=== PATIENT | female | born 1945 | race Caucasian/White ===

== ENCOUNTER 2017-11-16 12:29 | Inpatient (IN) | payer MEDICARE, OTHER ==
[~2017-11-16] VITALS: Ht 162.6 cm; Wt 60.3 kg
--- NOTE | 2017-11-16 12:35 | NUR ---
[id number] FROM HOME FOR N/V/D X 3 DAYS, +ORTHOSTATIC BP IN FIELD. IV INTACT ON LAC, 20 G. 200CC IV GIVEN ON ROUTE. BS-147. ALSO C/O BACK PAIN AND HEADACHE. A/OX 4. BREATHING EVEN AND UNLABORED. NO SOB. VITALS STABLE. SAFETY AND COMFORT MEASURES IN PLACE. AWAITING MD ORDERS.
--- NOTE | 2017-11-16 12:45 | NUR ---
RUG BACKING STENCILER AT BEDSIDE FOR BLOOD DRAW.
--- NOTE | 2017-11-16 12:50 | NUR ---
AT BEDSIDE FOR EVAL.
[2017-11-16] MEDS ORDERED: IV NS 0.9% 1,000 ML BAG IV ONE ×2 (13:00→13:30)
[2017-11-16 13:02] LABS: BASOPHILS # (AUTO) 0.1 /CMM (0.0-0.2); BASOPHILS % (AUTO) 0.7 % (0.0-2.0); EOSINOPHILS % (AUTO) 0.1 % (0.0-6.0); HEMATOCRIT 40 % (33-45); HEMOGLOBIN 13.9 g/dL (11.5-14.8); LYMPHOCYTES # (AUTO) 1.1 /CMM (0.8-4.8); LYMPHOCYTES % (AUTO) 12.6 % (20.0-44.0); MEAN CORPUSCULAR HEMOGLOBIN 30 PG (26.0-33.0); MEAN CORPUSCULAR HGB CONC 35 g/dl (31.0-36.0); MEAN CORPUSCULAR VOLUME 85 fL (82-100); MONOCYTES # (AUTO) 0.9 /CMM (0.1-1.30); MONOCYTES % (AUTO) 9.7 % (2.0-12.0); NEUTROPHILS % (AUTO) 76.9 % (43.0-81.0); PLATELET COUNT (AUTO) 96 /CMM (150-450); RDW COEFFICIENT OF VARIATION 13.2 (11.5-15.0); RED BLOOD CELL COUNT(AUTO) 4.73 MIL/uL (4.0-5.2); WHITE BLOOD COUNT (AUTO) 9.1 K/uL (4.3-11.0)
[2017-11-16 13:09] LABS: CALCIUM, SERUM 9.6 mg/dL (8.5-10.1); CARBON DIOXIDE 23 mmol/L (21-32); CHLORIDE 107 mmol/L (98-107); CREATININE 0.9 mg/dL (0.6-1.3); GLUCOSE 128 mg/dL (74-106); POTASSIUM 4.2 mmol/L (3.5-5.1); SODIUM SERUM 135 mmol/L (136-145); UREA NITROGEN, BLOOD 24 mg/dL (7-18)
[2017-11-16 13:19] LABS: ALANINE AMINOTRANSFERASE 8 U/L (12-78); ALKALINE PHOSPHATASE 68 U/L (46-116); ASPARTATE AMINOTRANSFERASE 17 U/L (15-37); BILIRUBIN,TOTAL 0.4 mg/dL (0.2-1.0); TOTAL PROTEIN, SERUM 6.3 g/dL (6.4-8.2)
[2017-11-16 13:21] LABS: TROPONIN I < 0.017 ng/mL (0.00-0.056)
[2017-11-16] MEDS ORDERED: ACETAMINOPHEN ES 500 MG TABLET ONE (13:29)
--- NOTE | 2017-11-16 13:30 | NUR ---
PER DR. GARCIA, GIVE 1 GM TYLENOL FOR HEADACHE.
--- NOTE | 2017-11-16 13:45 | NUR ---
URINE OBTAINED VIA STRAIGHT CATH AND SENT TO LAB PER MD ORDERS.
[2017-11-16] MEDS ORDERED: ATOR10TA PO (13:49)
[2017-11-16] MEDS ORDERED: ASPI-1169 PO (13:49)
[2017-11-16] MEDS ORDERED: LEVO50TA8 PO (13:49)
[2017-11-16] MEDS ORDERED: AMIT25TA52 PO (13:49)
[2017-11-16] MEDS ORDERED: FLUO40CA8 PO (13:49)
[2017-11-16] MEDS ORDERED: LOPERAMIDE HCL (2 MG CAP) 2 MG CAPSULE PO ONE ×2 (13:58→14:00)
[2017-11-16 15:00] LABS: APPEARANCE,URINE SL CLOUDY (CLEAR); BILIRUBIN,URINE 1+ (NEGATIVE); BLOOD, URINE 2+ Ery/uL (NEGATIVE); COLOR,URINE YELLOW (YELLOW); KETONES,URINE 1+ (NEGATIVE); LEUKOCYTE ESTERASE ,URINE 1+ (NEGATIVE); NITRITE, URINE POSITIVE (NEGATIVE); PROTEIN,URINE 1+ mg/dl (NEGATIVE); UGLUCOSE NEGATIVE (NEGATIVE)
[2017-11-16 15:30] LABS: BACTERIA,URINE 4+ /HPF (None Seen)
--- NOTE | 2017-11-16 16:23 | NUR ---
DR BORREGO AT BS FOR EVAL.
[2017-11-16] MEDS ORDERED: CEPHALEXIN MONOHYDRATE 500 MG CAPSULE PO ONE ×2 (16:28→16:30)
[2017-11-16] MEDS ORDERED: ONDANSETRON HCL/PF 4 MG/2 ML VIAL IVP PRN (17:00)
[2017-11-16] MEDS ORDERED: Z GUARD REMEDY 2 OZ OINT TP PRN (17:00)
[2017-11-16] MEDS ORDERED: ACETAMINOPHEN 325 MG TABLET PO PRN (17:00)
--- NOTE | 2017-11-16 17:26 | NUR ---
REPORT GIVEN TO MARZENA LUX FOR MOLLY UPON ADMISSION.
--- NOTE | 2017-11-16 17:45 | NUR ---
PATIENT TRANSPORTED TO [facility] VIA STRETCHER FOR ADMISSION. RN, MARZENA TO PROVIDE MOLLY.
--- NOTE | 2017-11-16 17:55 | NUR ---
RN MS NOTES RECEIVED PT FROM E.R. STAFF VIA ACACIA, PT IS AWAKE, ALERT AND ORIENTED, NO COMPLAINT OF PAIN, BREATHING PATTERN NORMAL, ASSISTED TO BED, MADE COMFORTABLE, ROOM SET UP ORIENTATION PROVIDED, VERBALIZED UNDERSTANDING, PLAN OF CARE DISCUSSED WITH PT, VERBALIZED UNDERSTANDING, KEPT COMFORTABLE, CALL LIGHT PLACED WITHIN REACH.
[2017-11-16 18:00] VITALS: BP 94/40
[2017-11-16] MEDS: IV NS 0.9% 1,000 ML IV PRN (18:19)
--- NOTE | 2017-11-16 18:40 | NUR ---
RN MS NOTES PT IN BED, RESTING, IV FLUIDS INFUSING, PT AWARE OF NPO STATUS, VERBALIZED UNDERSTANDING, KEPT WARM AND COMFORTABLE.
[2017-11-16 20:43] VITALS: BP 96/49
[2017-11-16] MEDS: ZOLPIDEM TARTRATE 5 MG TABLET PO PRN (20:49)
--- NOTE | 2017-11-16 21:03 | NUR ---
RN NOTES PATIENT REQUESTING FOR SLEEPING PILL. LATEST BP 96/49. PER THE PATIENT AND HER , THE USUAL BP AT HOME IS 90/60. EDUCATED REGARDING SIDE EFFECTS OF AMBIEN, INCLUDING LOWER BP. PATIENT VERBALIZES UNDERSTANDING, BUT STILL STRONGLY INSISTING ON RECEIVING AMBIEN 5MG. MEDICATION ADMINISTERED PER REQUEST. WILL MONITOR CLOSELY. PRIMARY NURSE MADE AWARE
[2017-11-16] MEDS: ATORVASTATIN 10 MG TABLET PO SCH (22:03)
[2017-11-17 04:00] VITALS: BP 105/56
[2017-11-17] MEDS: IV NS 0.9% 1,000 ML IV PRN ×2 (04:41→15:53)
--- NOTE | 2017-11-17 07:30 | NUR ---
MS RN OPENING RECEIVED PATIENT A/OX4. PATIENT DENIES SOB, DIFFICULTY BREATHING AND STATES MIGRAINE SINCE ADMISSION. NOTIFIED WE HAVE NORCO WE CAN GIVE PATIENT. ALL NEEDS IN REACH, BED LOWERED AND LOCKED, RAILS UPX3 FOR SAFETY BED ALARM ON LOWERED AND LOCKED. NOTIFIED PATIENT PER RN WE NEED ANOTHER STOOL SAMPLE THE PREVIOUS WAS NOT ENOUGH. PATIENT APPEARS STABLE AT THIS TIME. WILL ROUND Q2H OR LESS PER NEEDS.
[2017-11-17 08:00] VITALS: BP 82/48
[2017-11-17 08:15] VITALS: BP 96/56
[2017-11-17] MEDS: FLUOXETINE HCL 20 MG CAPSULE PO SCH (08:19)
[2017-11-17] MEDS: AMITRIPTYLINE HCL 25 MG TABLET PO SCH (08:19)
[2017-11-17] MEDS: ASPIRIN 81 MG TAB.CHEW PO SCH (08:20)
[2017-11-17] MEDS: LEVOTHYROXINE SODIUM 50 MCG TABLET PO SCH (08:20)
[2017-11-17] MEDS: HYDROCODONE/APAP 5/325MG 1 EACH TABLET PO PRN ×2 (08:20→21:30)
[2017-11-17 08:29] LABS: BASOPHILS % (AUTO) 0.3 % (0.0-2.0); EOSINOPHILS # (AUTO) 0.2 /CMM (0.0-0.7); EOSINOPHILS % (AUTO) 2.7 % (0.0-6.0); HEMATOCRIT 32 % (33-45); HEMOGLOBIN 11.1 g/dL (11.5-14.8); LYMPHOCYTES # (AUTO) 1.5 /CMM (0.8-4.8); LYMPHOCYTES % (AUTO) 20.7 % (20.0-44.0); MEAN CORPUSCULAR HEMOGLOBIN 30 PG (26.0-33.0); MEAN CORPUSCULAR HGB CONC 35 g/dl (31.0-36.0); MEAN CORPUSCULAR VOLUME 86 fL (82-100); MONOCYTES # (AUTO) 0.8 /CMM (0.1-1.30); MONOCYTES % (AUTO) 11.6 % (2.0-12.0); NEUTROPHILS # (AUTO) 4.6 /CMM (1.8-8.9); NEUTROPHILS % (AUTO) 64.7 % (43.0-81.0); PLATELET COUNT (AUTO) 171 /CMM (150-450); RDW COEFFICIENT OF VARIATION 13.8 (11.5-15.0); RED BLOOD CELL COUNT(AUTO) 3.73 MIL/uL (4.0-5.2); WHITE BLOOD COUNT (AUTO) 7.1 K/uL (4.3-11.0)
[2017-11-17 10:24] VITALS: BP 95/48
[2017-11-17 13:34] LABS: CALCIUM, SERUM 8.3 mg/dL (8.5-10.1); CARBON DIOXIDE 22 mmol/L (21-32); CHLORIDE 112 mmol/L (98-107); CREATININE 0.6 mg/dL (0.6-1.3); GLUCOSE 80 mg/dL (74-106); MAGNESIUM 1.5 mg/dL (1.8-2.4); PHOSPHORUS 2.4 mg/dL (2.5-4.9); POTASSIUM 3.6 mmol/L (3.5-5.1); SODIUM SERUM 142 mmol/L (136-145); UREA NITROGEN, BLOOD 11 mg/dL (7-18)
[2017-11-17 13:42] LABS: TRIGLYCERIDES 110 mg/dL (30-150)
[2017-11-17 13:43] LABS: CHOLESTEROL 124 mg/dL (<200); HDL CHOLESTEROL 42 mg/dL (40-60); LDL 63 mg/dL (0-99)
[2017-11-17] MEDS: Magnesium 1GM/D5W 100ML PREMIX 100 ML IV SCH ×2 (15:28→16:29)
[2017-11-17 16:00] VITALS: BP 93/40
--- NOTE | 2017-11-17 19:03 | NUR ---
MS RN CLOSING PATIENT STABLE ALL DUE MEDS GIVEN AND ALL NEEDS MET. NEEDS IN REACH. BED LOWERED AND LOCKED. IVF RUNNING ORDERED. PATIENT STABLE. CARE ENDORSED TO RN FOR MOLLY
[2017-11-17 20:00] VITALS: BP 114/38
[2017-11-17] MEDS: ZOLPIDEM TARTRATE 5 MG TABLET PO PRN (21:30)
[2017-11-17] MEDS: ATORVASTATIN 10 MG TABLET PO SCH (21:30)
[2017-11-18] MEDS: IV NS 0.9% 1,000 ML IV PRN ×2 (03:00→20:01)
[2017-11-18] MEDS: HYDROCODONE/APAP 5/325MG 1 EACH TABLET PO PRN (04:16)
[2017-11-18 07:26] LABS: BASOPHILS % (AUTO) 0.3 % (0.0-2.0); EOSINOPHILS # (AUTO) 0.5 /CMM (0.0-0.7); EOSINOPHILS % (AUTO) 7.1 % (0.0-6.0); HEMATOCRIT 30 % (33-45); HEMOGLOBIN 10.6 g/dL (11.5-14.8); LYMPHOCYTES # (AUTO) 1.4 /CMM (0.8-4.8); MEAN CORPUSCULAR HEMOGLOBIN 30 PG (26.0-33.0); MEAN CORPUSCULAR HGB CONC 35 g/dl (31.0-36.0); MEAN CORPUSCULAR VOLUME 86 fL (82-100); MONOCYTES # (AUTO) 0.7 /CMM (0.1-1.30); MONOCYTES % (AUTO) 10.2 % (2.0-12.0); NEUTROPHILS # (AUTO) 4.2 /CMM (1.8-8.9); NEUTROPHILS % (AUTO) 62.4 % (43.0-81.0); PLATELET COUNT (AUTO) 193 /CMM (150-450); RDW COEFFICIENT OF VARIATION 13.7 (11.5-15.0); RED BLOOD CELL COUNT(AUTO) 3.49 MIL/uL (4.0-5.2); WHITE BLOOD COUNT (AUTO) 6.8 K/uL (4.3-11.0)
[2017-11-18 07:39] LABS: CALCIUM, SERUM 8.2 mg/dL (8.5-10.1); CARBON DIOXIDE 23 mmol/L (21-32); CHLORIDE 110 mmol/L (98-107); CREATININE 0.5 mg/dL (0.6-1.3); GLUCOSE 87 mg/dL (74-106); MAGNESIUM 1.9 mg/dL (1.8-2.4); POTASSIUM 3.4 mmol/L (3.5-5.1); SODIUM SERUM 141 mmol/L (136-145); UREA NITROGEN, BLOOD 6 mg/dL (7-18)
--- NOTE | 2017-11-18 07:52 | NUR ---
RN INITIAL NOTES PATIENT RECEIVED IN BED RESTING, AOX4, NO SIGNS OF DISTRESS ON ROOM AIR 98% O2, NS 0.9% 100ML/HR, CURRENTLY PATIENT CLEAR LIQUIDS BED IN LOW AND LOCKED POSITION, CALL LIGHT WITHIN REACH RN WILL CONTINUE TO MONITOR.
[2017-11-18 08:00] VITALS: BP 113/50
[2017-11-18] MEDS: ASPIRIN 81 MG TAB.CHEW PO SCH (08:28)
[2017-11-18] MEDS: AMITRIPTYLINE HCL 25 MG TABLET PO SCH (08:28)
[2017-11-18] MEDS: LEVOTHYROXINE SODIUM 50 MCG TABLET PO SCH (08:28)
[2017-11-18] MEDS: FLUOXETINE HCL 20 MG CAPSULE PO SCH (08:28)
[2017-11-18] MEDS ORDERED: POTASSIUM CHLORIDE 20 MEQ TAB.PRT.SR PO SCH (12:30)
[2017-11-18 16:00] VITALS: BP 99/51
--- NOTE | 2017-11-18 18:47 | NUR ---
MS RN CLOSING PATIENT STABLE AT THIS TIME PLAN OF CARE DISCUSSED WITH PATIENT AND MEDS GIVEN AND ALL NEEDS MET. CALL LIGHT WITH IN REACH. BED LOWERED AND LOCKED. IVF RUNNING ORDERED. PATIENT STABLE. CARE ENDORSED TO PM RN FOR CONTINUATION OF CARE
[2017-11-18 20:00] VITALS: BP 119/58
[2017-11-18] MEDS: ZOLPIDEM TARTRATE 5 MG TABLET PO PRN (21:47)
[2017-11-18] MEDS: ATORVASTATIN 10 MG TABLET PO SCH (21:47)
[2017-11-19 04:00] VITALS: BP 101/58
[2017-11-19] MEDS: HYDROCODONE/APAP 5/325MG 1 EACH TABLET PO PRN ×2 (05:26→18:47)
--- NOTE | 2017-11-19 07:44 | NUR ---
RN INITIAL NOTES PATIENT RECEIVED IN BED RESTING, AOX4, NO SIGNS OF DISTRESS ON ROOM AIR PT CURRENTLY PATIENT CLEAR LIQUIDS PT BED IN LOW AND LOCKED POSITION, CALL LIGHT WITHIN REACH RN WILL CONTINUE TO MONITOR.
[2017-11-19 08:00] VITALS: BP 100/41
[2017-11-19 08:28] LABS: CALCIUM, SERUM 8.3 mg/dL (8.5-10.1); CARBON DIOXIDE 26 mmol/L (21-32); CHLORIDE 110 mmol/L (98-107); CREATININE 0.6 mg/dL (0.6-1.3); GLUCOSE 102 mg/dL (74-106); POTASSIUM 3.7 mmol/L (3.5-5.1); SODIUM SERUM 142 mmol/L (136-145); UREA NITROGEN, BLOOD 2 mg/dL (7-18)
[2017-11-19] MEDS: FLUOXETINE HCL 20 MG CAPSULE PO SCH (08:42)
[2017-11-19] MEDS: AMITRIPTYLINE HCL 25 MG TABLET PO SCH (08:42)
[2017-11-19] MEDS: ASPIRIN 81 MG TAB.CHEW PO SCH (08:43)
[2017-11-19] MEDS: LEVOTHYROXINE SODIUM 50 MCG TABLET PO SCH (08:43)
[2017-11-19] MEDS ORDERED: LEVO500T75 PO (09:29)
[2017-11-19] MEDS: LEVOFLOXACIN (500MG) 500 MG TABLET PO SCH (11:29)
--- NOTE | 2017-11-19 18:54 | NUR ---
MS RN CLOSING PATIENT STABLE AT THIS TIME PLAN OF CARE DISCUSSED WITH PATIENT AND MEDS GIVEN AND ALL NEEDS MET. CALL LIGHT WITH IN REACH. BED LOWERED AND LOCKED. IVF RUNNING ORDERED. PATIENT STABLE. CARE ENDORSED TO PM RN FOR CONTINUATION OF CARE PATIENT HAS PLANNED DISCHARGE IN AM AFTER SPEAKS WITH
[2017-11-19 20:00] VITALS: BP 94/37
[2017-11-19] MEDS: ATORVASTATIN 10 MG TABLET PO SCH (21:32)
--- NOTE | 2017-11-19 21:45 | NUR ---
MS-1/ENVIRONMENTAL SERVICES ASSISTANT REPORT TO THEE LUX FOR CONT OF CARE.
--- NOTE | 2017-11-19 21:45 | NUR ---
MS RN NOTES RECEIVED PTS AND REPORT FROM DEXTER NGUYEN FOR CONTINUITY OF CARE.
[2017-11-20 04:00] VITALS: BP 104/47
--- NOTE | 2017-11-20 05:25 | NUR ---
ms rn notes pts on bed a/ox3 v/s stable and afebrile ,all needs attended too , no significant change noted ,will endorse to rn day shift nurse for continuity of care.
--- NOTE | 2017-11-20 07:40 | NUR ---
MS RN OPENING NOTE PATIENT IS ALERT AND ORIENTED x4. NO PAIN AT THIS TIME. NO SOB OR DISTRESS NOTED. CALL LIGHT WITHIN REACH. SAFETY MEASURES IMPLEMENTED. ABLE TO COMMUNICATE NEEDS. ON REGULAR DIET TOLERATING WELL. RIGHT FOREARM IV INTACT AND PATENT NO REDNESS OR SWELLING NOTED. NO IV FLUIDS RUNNING AT THIS TIME. AMBULATORY WITH WALKER, STEADY GAIT. LABS THIS MORNING AWAITING RESULTS. POSSIBLE DISCHARGE TODAY, FAMILY WOULD LIKE TO SPEAK WITH MD PRIOR TO DISCHARGING FROM HOSPITAL. WILL CONTINUE TO MONITOR THROUGHOUT SHIFT
[2017-11-20] MEDS: ASPIRIN 81 MG TAB.CHEW PO SCH (08:11)
[2017-11-20] MEDS: AMITRIPTYLINE HCL 25 MG TABLET PO SCH (08:11)
[2017-11-20] MEDS: FLUOXETINE HCL 20 MG CAPSULE PO SCH (08:11)
[2017-11-20] MEDS: LEVOTHYROXINE SODIUM 50 MCG TABLET PO SCH (08:11)
[2017-11-20] MEDS: LEVOFLOXACIN (500MG) 500 MG TABLET PO SCH (08:34)
[2017-11-20 12:22] VITALS: BP 111/57
[2017-11-20] MEDS ORDERED: LEVO500T75 PO (12:47)
--- NOTE | 2017-11-20 14:17 | NUR ---
MS BOTTOM BUFFER NOTE PATIENT IS ALERT AND ORIENTED x4. NO PAIN AT THIS TIME. NO SOB OR DISTRESS NOTED. CALL LIGHT WITHIN REACH AT ALL TIMES. SAFETY MEASURES IMPLEMENTED. ABLE TO COMMUNICATE NEEDS. ALL DUE MEDICATIONS GIVEN ORDERED. ALL NURSING CARE NEEDS ATTENDED TO. IV REMOVED. SKIN INTACT. ALL BELONGINGS ACCOUNTED FOR UPON DISCHARGE AND WITH PATIENT. PRESCRIPTION GIVEN TO PATIENT, GAVE MEDICATION EDUCATION, TEACH BACK RECEIVED. ALL DISCHARGE INSTRUCTIONS GIVEN TO PATIENT AND AT BESIDE, TEACH BACK RECEIVED. LEFT VIA PRIVATE CAR WITH HOME.
== END 2017-11-20 14:00 | disposition home or self-care (01) | DRG 391 ==
LOC: ER 12:33 → EDBD 12:33 → MEDSG1 17:11
PROVIDERS: ADMIT Family Medicine; ATTEND Family Medicine
DX: A08.4 Viral intestinal infection, unspecified (principal); N17.0 Acute kidney failure with tubular necrosis; N39.0 Urinary tract infection, site not specified; E44.0 Moderate protein-calorie malnutrition; J98.11 Atelectasis; E86.0 Dehydration; E83.42 Hypomagnesemia; B96.89 Other specified bacterial agents as the cause of diseases classified elsewhere; E03.9 Hypothyroidism, unspecified; E78.5 Hyperlipidemia, unspecified; Z79.82 Long term (current) use of aspirin; Z79.899 Other long term (current) drug therapy; E86.9 Volume depletion, unspecified; R73.9 Hyperglycemia, unspecified; F32.9 Major depressive disorder, single episode, unspecified
CPT/HCPCS: 36415; 71045-TC; 80048-TC; 80061-TC; 80076-TC; 81000-TC; 83735-TC; 84100-TC; 84484-TC; 85025-TC; 87045-TC; 87081-TC; 87086-TC; 87186-TC; 89055; A4606; J2405; J3475; J7030; Z7610

== ENCOUNTER 2019-09-12 06:51 | Inpatient (IN) | payer BC, MEDICARE ==
[~2019-09-12] VITALS: Ht 165.1 cm; Wt 63.6 kg
[~2019-09-12 06:51] MED LIST: AMIT25TA52 PO; ASPI-1169 PO; ATOR10TA PO; FLUO40CA8 PO; LEVO500T75 PO; LEVO50TA8 PO
--- NOTE | 2019-09-12 07:14 | NUR ---
[id number] FROM [facility] C/O HEADACHE X3HR DIRECT CARE SUPERVISOR. REC'D TYLENOL 650MG WITH NO RELIEF, NO NEURO DEFICITS, TO ER BED 4, LINE STARTED, PHLEB AT BEDSIDE FOR LAB DRAW
[2019-09-12] MEDS ORDERED: PANTOPRAZOLE 40 MG VIAL ONE (07:20)
--- NOTE | 2019-09-12 07:28 | NUR ---
PATIENT RECEIVED RESTING INSIDE ROOM. SLEEPING, AROUSABLE THROUGH VERBAL AND TACTILE STIMULI. NO ACUTE DISTRESS. CONNECTED TO MONITOR. WILL CONTINUE TO MONITOR ACCORDINGLY
[2019-09-12] MEDS ORDERED: PANTOPRAZOLE 80 MG in IV NS 0.9% 500 ML IV ONE (07:30)
[2019-09-12] MEDS ORDERED: PANTOPRAZOLE 80 MG in IV NS 0.9% 500 ML IV PRN (07:30)
[2019-09-12] MEDS ORDERED: IV NS 0.9% 1,000 ML BAG IV ONE (07:30)
[2019-09-12 07:33] LABS: BASOPHILS % (AUTO) 0.5 % (0.0-2.0); EOSINOPHILS % (AUTO) 7.6 % (0.0-6.0); HEMATOCRIT 26 % (33-45); HEMOGLOBIN 8.7 g/dL (11.5-14.8); LYMPHOCYTES # (AUTO) 1.2 /CMM (0.8-4.8); LYMPHOCYTES % (AUTO) 14.8 % (20.0-44.0); MEAN CORPUSCULAR HGB CONC 34 g/dl (31.0-36.0); MEAN CORPUSCULAR VOLUME 91 fL (82-100); MONOCYTES # (AUTO) 0.9 /CMM (0.1-1.30); MONOCYTES % (AUTO) 10.9 % (2.0-12.0); NEUTROPHILS # (AUTO) 5.3 /CMM (1.8-8.9); NEUTROPHILS % (AUTO) 66.2 % (43.0-81.0); PLATELET COUNT (AUTO) 282 /CMM (150-450); RED BLOOD CELL COUNT(AUTO) 2.82 MIL/uL (4.0-5.2); WHITE BLOOD COUNT (AUTO) 7.9 K/uL (4.3-11.0)
[2019-09-12 07:39] LABS: CALCIUM, SERUM 8.5 mg/dL (8.5-10.1); CARBON DIOXIDE 33 mmol/L (21-32); CHLORIDE 102 mmol/L (98-107); CREATININE 0.7 mg/dL (0.6-1.3); GLUCOSE 88 mg/dL (74-106); POTASSIUM 3.2 mmol/L (3.5-5.1); SODIUM SERUM 135 mmol/L (136-145); UREA NITROGEN, BLOOD 14 mg/dL (7-18)
--- NOTE | 2019-09-12 07:41 | NUR ---
PATIENT LEFT UNIT VIA GURNEY WITH [employer] FOR CT
[2019-09-12 07:45] LABS: ALANINE AMINOTRANSFERASE 26 U/L (12-78); ALKALINE PHOSPHATASE 66 U/L (46-116); ASPARTATE AMINOTRANSFERASE 30 U/L (15-37); BILIRUBIN,DIRECT 0.1 mg/dL (0.0-0.2); BILIRUBIN,TOTAL 0.3 mg/dL (0.2-1.0)
--- NOTE | 2019-09-12 08:05 | NUR ---
PATIENT BACK FROM RADIOLOGY. CONNECTED TO MONITOR. STARTED PROTONIX DRIP PER ORDER. WILL CONTINUE TO MONITOR
--- NOTE | 2019-09-12 08:35 | NUR ---
CALLED MS BED.
[2019-09-12] MEDS ORDERED: ONDANSETRON HCL/PF 4 MG/2 ML VIAL IVP PRN (09:00)
[2019-09-12] MEDS ORDERED: Z GUARD REMEDY 2 OZ OINT TP PRN (09:00)
[2019-09-12] MEDS ORDERED: ZOLPIDEM TARTRATE 5 MG TABLET PO PRN (09:00)
--- NOTE | 2019-09-12 09:00 | NUR ---
GOT BED 325
--- NOTE | 2019-09-12 09:58 | NUR ---
REPORT GIVEN TO DIXIE LUX FOR MOLLY
--- NOTE | 2019-09-12 10:43 | NUR ---
PATIENT TRANSFERED TO [facility] VIA RNEY. NO ACUTE DISTRESS. RECEIVING NURSE AT BEDSIDE
--- NOTE | 2019-09-12 10:45 | NUR ---
TELE ADMIT FROM ER AFTER REPORT RECEIVED FROM GARY RN. PATIENT ORIENTED TO PRIMARY RN, ROOM, BED, AND UNIT POLICIES REGARDING PATIENT CARE AND VISITING HOURS. PATIENT NOW ON CONTINUOUS TELEMETRY MONITORING; READING ON ARRIVAL IS SR 98. PATIENT PLACED ON BEDSIDE 02, WEIGHED BY BEDSCALE, AND ENCOURAGED TO CALL IF NECESSARY. ALL QUESTIONS AND CONCERNS ADDRESSED. PATIENT VERBALIZED UNDERSTANDING.
[2019-09-12] MEDS: HYDROCODONE/APAP 5/325MG 1 EACH TABLET PO PRN ×3 (11:24→23:37)
[2019-09-12 15:27] LABS: IRON, SERUM 46 ug/dl (50-175); TOTAL IRON BINDING CAPACITY 178 ug/dl (250-450)
[2019-09-12] MEDS: IV NS 0.9% 1,000 ML IV PRN (15:30)
[2019-09-12 15:34] LABS: FERRITIN 271 ng/mL (8-388)
[2019-09-12 16:00] VITALS: BP 109/55
[2019-09-12 16:43] LABS: HEMOGLOBIN 10.4 g/dL (11.5-14.8)
--- NOTE | 2019-09-12 19:05 | NUR ---
LITIGATION COUNSEL NOTE RECEIVED PT IN STABLE CONDITION A/O X 2-3, NO SIGNS OF SOB OR DISTRESS, NO C/O PAIN OR N/V. IV IN R FA #[address] TELE MONITOR: SR 90. ALL CURRENT NEEDS ATTENDED TO. BED LOW, LOCKED, UPPER RAILS UP AND CALL LIGHT WITHIN REACH. WILL CONT. TO MONITOR.
--- NOTE | 2019-09-12 19:29 | NUR ---
CHANGE OF SHIFT REPORT PT RESTING COMFORTABLY IN BED. NO S/S OR C/O PAIN OR DISTRESS NOTED. SIDE RAILS UP X2, CALL LIGHT LEFT WITHIN REACH. NO SIGNIFICANT CHANGES SINCE ADMISSION. PT KEPT CLEAN, DRY, AND COMFORTABLE. REPORT GIVEN TO ABEL LUX
[2019-09-12 19:58] VITALS: BP 119/55
[2019-09-12] MEDS: PANTOPRAZOLE 40 MG VIAL IV SCH (21:23)
[2019-09-12 23:20] LABS: BILIRUBIN,URINE NEGATIVE (NEGATIVE); BLOOD, URINE NEGATIVE Ery/uL (NEGATIVE); COLOR,URINE YELLOW (YELLOW); KETONES,URINE NEGATIVE (NEGATIVE); LEUKOCYTE ESTERASE ,URINE NEGATIVE (NEGATIVE); NITRITE, URINE NEGATIVE (NEGATIVE); PH,URINE 6.5 (5.0-8.0); PROTEIN,URINE NEGATIVE (NEGATIVE); UGLUCOSE NEGATIVE (NEGATIVE); UROBILINOGEN,URINE 0.2 EU/dL (0.2)
[2019-09-12 23:30] LABS: APPEARANCE,URINE CLEAR (CLEAR)
[2019-09-12 23:41] VITALS: BP 103/57
[2019-09-13] MEDS: IV NS 0.9% 1,000 ML IV PRN ×2 (02:31→20:37)
[2019-09-13 03:59] VITALS: BP 92/59
--- NOTE | 2019-09-13 06:12 | NUR ---
MILL ATTENDANT NOTE PT IN STABLE CONDITION A/O X 2-3, NO SIGNS OF SOB OR DISTRESS, NO C/O PAIN OR N/V. IV IN R FA #[address] TELE MONITOR: SR 78. PT CURRENTLY NPO. ALL CURRENT NEEDS ATTENDED TO. BED LOW, LOCKED, UPPER RAILS UP AND CALL LIGHT WITHIN REACH. WILL CONT. TO MONITOR AND ENDORSE TO NEXT SHIFT FOR MOLLY.
[2019-09-13 06:18] LABS: BASOPHILS # (AUTO) 0.1 /CMM (0.0-0.2); BASOPHILS % (AUTO) 0.8 % (0.0-2.0); EOSINOPHILS % (AUTO) 9.5 % (0.0-6.0); HEMATOCRIT 27 % (33-45); HEMOGLOBIN 9.6 g/dL (11.5-14.8); LYMPHOCYTES # (AUTO) 1.3 /CMM (0.8-4.8); LYMPHOCYTES % (AUTO) 17.1 % (20.0-44.0); MEAN CORPUSCULAR HGB CONC 35 g/dl (31.0-36.0); MEAN CORPUSCULAR VOLUME 90 fL (82-100); MONOCYTES # (AUTO) 0.8 /CMM (0.1-1.30); MONOCYTES % (AUTO) 10.3 % (2.0-12.0); NEUTROPHILS # (AUTO) 4.6 /CMM (1.8-8.9); NEUTROPHILS % (AUTO) 62.3 % (43.0-81.0); PLATELET COUNT (AUTO) 253 /CMM (150-450); RED BLOOD CELL COUNT(AUTO) 3.04 MIL/uL (4.0-5.2); WHITE BLOOD COUNT (AUTO) 7.4 K/uL (4.3-11.0)
[2019-09-13 06:41] LABS: CALCIUM, SERUM 8.4 mg/dL (8.5-10.1); CREATININE 0.7 mg/dL (0.6-1.3); MAGNESIUM 1.6 mg/dL (1.8-2.4); POTASSIUM 3.6 mmol/L (3.5-5.1)
[2019-09-13 08:00] VITALS: BP 97/45
[2019-09-13] MEDS: HYDROCODONE/APAP 5/325MG 1 EACH TABLET PO PRN ×2 (08:22→14:53)
[2019-09-13] MEDS ORDERED: FLUT1BLS IH (08:25)
[2019-09-13] MEDS ORDERED: ASCO500T9 PO (08:25)
[2019-09-13] MEDS ORDERED: PRED2.5T PO (08:25)
[2019-09-13] MEDS ORDERED: BISA10SU11 RC (08:25)
[2019-09-13] MEDS ORDERED: ACET-868 PO (08:25)
[2019-09-13] MEDS ORDERED: TRAM50TA2 PO (08:25)
[2019-09-13] MEDS ORDERED: ZINC220C8 PO (08:25)
[2019-09-13] MEDS ORDERED: MULT-447 PO (08:25)
[2019-09-13] MEDS ORDERED: HYDR-4384 PO (08:25)
[2019-09-13] MEDS ORDERED: MIRT7.5T10 PO (08:25)
[2019-09-13] MEDS ORDERED: MAGN400O6 PO (08:25)
[2019-09-13] MEDS ORDERED: POLY17PO4 PO (08:25)
[2019-09-13] MEDS ORDERED: DIAZ5TAB4 PO (08:25)
[2019-09-13] MEDS ORDERED: NA P133E RC (08:25)
--- NOTE | 2019-09-13 08:30 | NUR ---
EGD CANCELLED AND PT. TO BE FED.
[2019-09-13] MEDS: PANTOPRAZOLE 40 MG VIAL IV SCH ×2 (08:34→20:54)
[2019-09-13] MEDS: Magnesium 1GM/D5W 100ML PREMIX 100 ML IV SCH ×2 (11:14→12:47)
--- NOTE | 2019-09-13 12:46 | NUR ---
WOUND CARE CONSULT WOUND CARE RECEIVED CONSULT FOR SACRAL/BUTTOCK REDNESS. WOUND CARE WILL DEFER CONSULT AND TREATMENT PLANS TO PLASTIC SURGICAL TEAM WHO ARE CURRENTLY FOLLOWING THIS PATIENT. PATIENT WITH STANISLAW AT 13, ALL PRESSURE ULCER PREVENTION MEASURES ARE NOTED TO BE IN PLACE AT THIS TIME. WILL SEE PRN.
[2019-09-13] MEDS: HYDROGEL DRESSING 90 GM TUBE TP SCH (13:36)
--- NOTE | 2019-09-13 14:22 | NUR ---
HARINI GILLILAND FROM PLASTIC SURGERY TEAM HERE AND SACRAL DEBRIDEMENT DONE.PT. ON LOW AIR LOSS BED
[2019-09-13 16:00] VITALS: BP 99/43
--- NOTE | 2019-09-13 16:00 | NUR ---
BP LOW-PT. IN TRENDELENBERG.IV INFUSING.MEDICATED X2 FOR PAIN TODAY. SPOUSE HERE.STATES PT. TAKING PAIN MEDS FOR YRS.SEEMS TO BE EASILY AFFECTED FROM PAIN MEDS.
--- NOTE | 2019-09-13 18:30 | NUR ---
JOSE VALENZUELA MANAGER OF CLINICAL HERE AND STATES EGD NOT TO BE DONE TOMORROW. CONT. TO GIVE PT. LIQ. DIET FOR NOW.
--- NOTE | 2019-09-13 19:20 | NUR ---
MS RN OPENING NOTES RECEIVED PATIENT FROM MORNING SHIFT, ALERT AND ORIENTED X 2-3. VERBALLY RESPONSIVE AND ABLE TO FOLLOW DIRECTIONS. BREATHING REGULAR AND UNLABORED ON OXYGEN AT 2L/MIN VIA NASAL CANNULA. RIGHT FOREARM G20 IV LINE INTACT AND PATENT FLUSHING WELL WITH NO BLEEDING OR S/S OF INFECTION/INFILTRATION NOTED. ON CLEAR LIQUIDS DIET TOLERATING WELL WITH NO NAUSEA/VOMITING OBSERVED. COMPLAINED OF 3/10 HEADACHE, TYLENOL 650MG GIVEN WITH NON PHARMACOLOGICAL INTERVENTIONS PROVIDED. BED LOW AND LOCKED ON SEMI FOWLERS POSITION. CALL LIGHT AND OTHER BELONGINGS IN REACH. WILL CONTINUE TO MONITOR.
[2019-09-13 20:00] VITALS: BP 109/50
[2019-09-13] MEDS: ACETAMINOPHEN 325 MG TABLET PO PRN (20:04)
--- NOTE | 2019-09-13 21:00 | NUR ---
MS RN NOTES SEEN PATIENT COUGHING AND NOTED WITH INCREASED IN RESPIRATION. REPORTED AND SEEN BY DARSHANA BARTH WITH ORDERS FOR STAT ABG AND GIVE ATIVAN 0.5MG FOR ANXIETY NOTED AND CARRIED OUT. WILL CONTINUE TO MONITOR.
[2019-09-13 21:15] LABS: ABG OXYGEN SATURATION 93.7 % (92.0-98.5); ABG PCO2 40.5 mmHg (35.0-45.0); ABG PH 7.446 (7.350-7.450); ABG PO2 69.3 mmHg (75.0-100.0); AaDO2 111.5 mmHg; COHb 0.8 % (0.5-1.5); MetHb 0.4 % (0.0-1.5); O2Hb 92.6 % (94.0-97.0); SITE, ABG Right Radial; VENT MODE, BG Nasal Cannula
[2019-09-13] MEDS: LORAZEPAM INJ 2 MG/ML VIAL IV PRN (21:23)
--- NOTE | 2019-09-13 21:30 | NUR ---
MS RN NOTES OBSERVED WITH S/S OF ANXIETY WITH INCREASED IN RESPIRATION AND INABILITY TO STAY STILL, ATIVAN 0.5MG GIVEN VIA IV PUSH, NON PHARMACOLOGICAL INTERVENTIONS RENDERED. WILL CONTINUE TO MONITOR.
[2019-09-13 22:00] VITALS: BP 109/50
--- NOTE | 2019-09-14 06:32 | NUR ---
MS RN CLOSING NOTES PATIENT IN BED ALERT AND ORIENTED X 2-3 WITH EPISODES OF CONFUSION AND FORGETFULNESS. VERBALLY RESPONSIVE AND ABLE TO FOLLOW DIRECTIONS. BREATHING REGULAR AND UNLABORED ON OXYGEN AT 2L/MIN VIA NASAL CANNULA. RIGHT FOREARM G20 IV LINE INTACT AND PATENT, INFUSING WELL. NO S/S OF DISTRESS OBSERVED OF THE TIME. NO COMPLAINTS OF PAIN/DISCOMFORT REPORTED. WOUND TREATMENT PROVIDED. BED LOW AND LOCKED ON SEMI FOWLERS POSITION. CALL LIGHT AND BELONGINGS WITHIN REACH. WILL ENDORSE TO MORNING SHIFT FOR MOLLY.
[2019-09-14 06:42] LABS: BASOPHILS % (AUTO) 0.6 % (0.0-2.0); EOSINOPHILS % (AUTO) 7.9 % (0.0-6.0); HEMATOCRIT 24 % (33-45); HEMOGLOBIN 8.4 g/dL (11.5-14.8); LYMPHOCYTES # (AUTO) 1.1 /CMM (0.8-4.8); LYMPHOCYTES % (AUTO) 17.9 % (20.0-44.0); MEAN CORPUSCULAR HGB CONC 34 g/dl (31.0-36.0); MEAN CORPUSCULAR VOLUME 91 fL (82-100); MONOCYTES # (AUTO) 0.6 /CMM (0.1-1.30); MONOCYTES % (AUTO) 10.3 % (2.0-12.0); NEUTROPHILS # (AUTO) 3.8 /CMM (1.8-8.9); NEUTROPHILS % (AUTO) 63.3 % (43.0-81.0); PLATELET COUNT (AUTO) 240 /CMM (150-450); RED BLOOD CELL COUNT(AUTO) 2.68 MIL/uL (4.0-5.2)
[2019-09-14 07:02] LABS: CALCIUM, SERUM 8.1 mg/dL (8.5-10.1); CREATININE 0.7 mg/dL (0.6-1.3); PHOSPHORUS 3.6 mg/dL (2.5-4.9); POTASSIUM 3.5 mmol/L (3.5-5.1)
--- NOTE | 2019-09-14 07:59 | NUR ---
MS RN OPENING NOTES Received Patient asleep and resting in bed. VS stable with no acute distress. Breathing even and unlabored on 2LPM via NC with SPO2 99%. No signs and symptoms of pain. 20g PIV on RFA clean, intact and patent with NS running at 75ml/hr. Wound dressing clean and intact. Safety precautions in place. Bed locked and set to lowest position with side rails x 2 up. All needs rendered at this time. Call light within reach. Will continue to monitor.
[2019-09-14 08:06] VITALS: BP 129/57
[2019-09-14] MEDS: ACETAMINOPHEN 325 MG TABLET PO PRN ×2 (08:45→15:35)
[2019-09-14] MEDS: PANTOPRAZOLE 40 MG VIAL IV SCH ×2 (08:48→20:56)
[2019-09-14] MEDS: HYDROGEL DRESSING 90 GM TUBE TP SCH (09:21)
[2019-09-14 16:00] VITALS: BP 95/50
[2019-09-14] MEDS: HYDROCODONE/APAP 5/325MG 1 EACH TABLET PO PRN (18:35)
[2019-09-14] MEDS: IV NS 0.9% 1,000 ML IV PRN (18:37)
--- NOTE | 2019-09-14 19:11 | NUR ---
MS RN CLOSING NOTES Patient asleep and resting in bed. VS stable with no acute distress. Breathing even and unlabored on 2LPM via NC with SPO2 99%. Administered Independence 5-325mg x 1 tab PO for headache 08/19 at 1835. 20g PIV on RFA clean, intact and patent with NS running at 75ml/hr. Wound dressing clean and intact. Safety precautions in place. Bed locked and set to lowest position with side rails x 2 up. All needs rendered at this time. Call light within reach. Will endorse plan of care to oncoming shift.
--- NOTE | 2019-09-14 19:40 | NUR ---
RN OPENING NOTES: RECEIVED REPORT FROM DAYSHIFT RN NANCY. FOUND Pt AWAKE, RESTING IN BED, WATCHING TV. Pt ON 2L 02 VIA NC. Pt IS A/OX2, VERBAL, ABLE TO MAKE NEEDS KNOWN, FORGETFUL. IV ACCESS ON RFA #20G; IVF NS @75ML/HR. Pt WILL BE NPO AT CT FOR SCHEDULED EDG TOMORROW. Pt IS AWARE. CONSENT SIGNED AND PLACED IN CHART. SAFETY MEASURES IN PLACE. BED LOW, LOCKED, HOB ELEVATED, SIDE RAILS UP, CALL LIGHT AND BEDSIDE TABLE WITHIN REACH. BED ALARM ON. WILL CONTINUE TO MONITOR Pt's CONDITION AND SAFETY THROUGHOUT THE NIGHT.
[2019-09-14 20:00] VITALS: BP 100/50
[2019-09-14 20:24] VITALS: BP 100/45
[2019-09-14] MEDS: LORAZEPAM INJ 2 MG/ML VIAL IV PRN (20:56)
--- NOTE | 2019-09-14 22:25 | NUR ---
RN NOTES INFORMED ONCALL HOSPITALIST DARSHANA HERNANDEZ THAT Pt WAS C/O SOB WITH LABORED BREATHING & COUGHING. ORDERED PRN BREATHING TREATMENT Q4H FOR SOB & DIFFICULTY BREATHING.
--- NOTE | 2019-09-14 22:30 | NUR ---
RN NOTES DARSHANA HERNANDEZ SAID OK FOR TURNING OFF IVF FOR NOW. ORDERED CXR.
[2019-09-14] MEDS: ALBUTEROL FS 2.5 MG/3 ML VIAL.NEB NEB PRN (23:53)
[2019-09-15] MEDS: LORAZEPAM INJ 2 MG/ML VIAL IV PRN (05:36)
--- NOTE | 2019-09-15 06:40 | NUR ---
RN CLOSING NOTES NO SIGNIFICANT CHANGES IN Pt's CONDITION. STOOL OB COLLECTED. Pt IS RESTING COMFORTABLY IN BED, WITH EVEN AND UNLABORED RESPIRATIONS. ALL NEEDS MET AND ATTENDED TO. Pt HAS BEEN NPO. EGD SCHEDULED FOR TODAY. SAFETY MEASURES IN PLACE. WILL ENDORSE TO DAYSHIFT RN FOR Pt's MOLLY.
[2019-09-15 06:55] LABS: BASOPHILS % (AUTO) 0.2 % (0.0-2.0); EOSINOPHILS % (AUTO) 4.2 % (0.0-6.0); HEMATOCRIT 27 % (33-45); HEMOGLOBIN 9.3 g/dL (11.5-14.8); LYMPHOCYTES # (AUTO) 0.9 /CMM (0.8-4.8); LYMPHOCYTES % (AUTO) 11.9 % (20.0-44.0); MEAN CORPUSCULAR HGB CONC 34 g/dl (31.0-36.0); MEAN CORPUSCULAR VOLUME 91 fL (82-100); MONOCYTES # (AUTO) 0.7 /CMM (0.1-1.30); MONOCYTES % (AUTO) 9.2 % (2.0-12.0); NEUTROPHILS # (AUTO) 5.3 /CMM (1.8-8.9); NEUTROPHILS % (AUTO) 74.5 % (43.0-81.0); PLATELET COUNT (AUTO) 275 /CMM (150-450); RED BLOOD CELL COUNT(AUTO) 2.99 MIL/uL (4.0-5.2); WHITE BLOOD COUNT (AUTO) 7.2 K/uL (4.3-11.0)
[2019-09-15 07:24] LABS: CALCIUM, SERUM 8.7 mg/dL (8.5-10.1); CREATININE 0.8 mg/dL (0.6-1.3); MAGNESIUM 1.7 mg/dL (1.8-2.4); PHOSPHORUS 2.7 mg/dL (2.5-4.9); POTASSIUM 3.4 mmol/L (3.5-5.1)
[2019-09-15 08:00] VITALS: BP 114/72
--- NOTE | 2019-09-15 08:00 | NUR ---
MS RN OPENING NOTES Received Patient resting in bed. A/O x 2 with episodes of forgetfulness and confusion. VS stable with no acute distress. Breathing even and unlabored on 3LPM via NC with SPO2 94%. No signs and symptoms of pain. 20g PIV on RFA clean, intact and patent with NS running at 75ml/hr. Wound dressing clean and intact. Safety precautions in place. Bed locked and set to lowest position with side rails x 2 up. All needs rendered at this time. Call light within reach. Will continue to monitor.
[2019-09-15 08:18] LABS: OCCULT BLOOD STOOL NEGATIVE (NEGATIVE)
[2019-09-15] MEDS: PANTOPRAZOLE 40 MG VIAL IV SCH ×2 (09:52→20:11)
[2019-09-15] MEDS: HYDROGEL DRESSING 90 GM TUBE TP SCH (09:53)
--- NOTE | 2019-09-15 10:07 | NUR ---
MS RN NOTES Patient taken to OR for EGD. Patient in stable condition. in room.
[2019-09-15] MEDS ORDERED: ETOMIDATE 2 MG/ML VIAL ONE (10:09)
[2019-09-15] MEDS ORDERED: ALBUTEROL FS 2.5 MG/3 ML VIAL.NEB ONE (12:10)
--- NOTE | 2019-09-15 12:20 | NUR ---
MS RN NOTES Patient returned from OR from EGD at this time. Patient in stable condition. VS stable with no acute distress. Breathing even with shortness of breath on 4LPM with SPO2 94% with no respiratory distress. Denies pain. Post orders noted and carried out. Will continue to monitor.
[2019-09-15] MEDS: Magnesium 1GM/D5W 100ML PREMIX 100 ML IV SCH ×2 (13:20→15:20)
[2019-09-15] MEDS: POTASSIUM CL. PREMIX PERIPHER. 50 ML IV SCH ×2 (13:20→15:20)
--- NOTE | 2019-09-15 14:02 | NUR ---
MS RN NOTES 20g PIV on RFA leaking. Removed PIV and replaced it with 20g PIV on LORENA x 1 attempt. Patient tolerated well. at bedside. Will continue to monitor.
[2019-09-15 16:00] VITALS: BP 101/52
--- NOTE | 2019-09-15 19:40 | NUR ---
MS RN CLOSING NOTES Patient resting in bed. A/O x 2 with episodes of forgetfulness and confusion. VS stable with no acute distress. Breathing even and unlabored on 3LPM via NC with SPO2 96%. Patient stated neck pain. Endorsed to oncoming shift. 20g PIV on RFA clean, intact and patent with NS running at 75ml/hr. Wound dressing clean and intact. Safety precautions in place. Bed locked and set to lowest position with side rails x 2 up. All needs rendered at this time. Call light within reach. Will endorse plan of care to oncoming shift.
--- NOTE | 2019-09-15 19:45 | NUR ---
RN OPENING NOTES: RECEIVED REPORT FROM DAYSHIFT RN NANCY. FOUND Pt AWAKE, RESTING IN BED. Pt ON 2L 02 VIA NC. Pt IS A/OX2, VERBAL, ABLE TO MAKE NEEDS KNOWN, FORGETFUL. IV ACCESS ON RFA #20G. SAFETY MEASURES IN PLACE. BED LOW, LOCKED, HOB ELEVATED, SIDE RAILS UP, CALL LIGHT AND BEDSIDE TABLE WITHIN REACH. BED ALARM ON. WILL CONTINUE TO MONITOR Pt's CONDITION AND SAFETY THROUGHOUT THE NIGHT.
[2019-09-15 20:00] VITALS: BP 106/53
[2019-09-15] MEDS: ACETAMINOPHEN 325 MG TABLET PO PRN (20:11)
[2019-09-15] MEDS: ALBUTEROL FS 2.5 MG/3 ML VIAL.NEB NEB PRN (20:35)
[2019-09-16 06:25] LABS: BASOPHILS % (AUTO) 0.4 % (0.0-2.0); EOSINOPHILS % (AUTO) 6.2 % (0.0-6.0); HEMATOCRIT 24 % (33-45); HEMOGLOBIN 7.9 g/dL (11.5-14.8); LYMPHOCYTES # (AUTO) 0.9 /CMM (0.8-4.8); LYMPHOCYTES % (AUTO) 14.6 % (20.0-44.0); MEAN CORPUSCULAR HGB CONC 34 g/dl (31.0-36.0); MEAN CORPUSCULAR VOLUME 91 fL (82-100); MONOCYTES # (AUTO) 0.6 /CMM (0.1-1.30); MONOCYTES % (AUTO) 9.8 % (2.0-12.0); NEUTROPHILS # (AUTO) 4.2 /CMM (1.8-8.9); PLATELET COUNT (AUTO) 229 /CMM (150-450); WHITE BLOOD COUNT (AUTO) 6.2 K/uL (4.3-11.0)
--- NOTE | 2019-09-16 06:28 | NUR ---
RN CLOSING NOTES NO SIGNIFICANT CHANGES IN Pt's CONDITION. Pt REMAINS STABLE AT THIS TIME. NO S/S OF ACUTE DISTRESS OR SEVERE SOB NOTED DURING THE NIGHT. Pt IS RESTING COMFORTABLY IN BED, WITH EVEN AND UNLABORED RESPIRATIONS. ALL NEEDS MET AND ATTENDED TO. SAFETY MEASURES IN PLACE. WILL ENDORSE TO DAYSHIFT RN FOR Pt's MOLLY.
[2019-09-16 06:42] LABS: CALCIUM, SERUM 7.9 mg/dL (8.5-10.1); CREATININE 0.6 mg/dL (0.6-1.3); PHOSPHORUS 3.1 mg/dL (2.5-4.9); POTASSIUM 3.8 mmol/L (3.5-5.1)
--- NOTE | 2019-09-16 07:44 | NUR ---
MS RN NOTES PATIENT IN BED, ALERT ORIENTED X 2. BREATHING IS EVEN AND UNLABORED. SHOWS NO SIGNS OF SOB, NO ACUTE DISTRESS. IV ON RAC #20G CLEAN, DRY, AND INTACT. RUNNING NS AT 75ML/H, SHOWS NO REDNESS, NO INFILTRATION. ALL PATIENTS NEEDS ARE MET. SAFETY MEASURE ARE IN PLACE. BED KEPT IN LOWEST POSITION, LOCKED, AND CALL LIGHT KEPT WITHIN REACH. WILL CONTINUE TO MONITOR.
[2019-09-16 08:00] VITALS: BP 102/49
[2019-09-16] MEDS: HYDROGEL DRESSING 90 GM TUBE TP SCH (08:15)
[2019-09-16] MEDS: PANTOPRAZOLE 40 MG VIAL IV SCH ×2 (08:15→21:57)
[2019-09-16] MEDS: HYDROCODONE/APAP 5/325MG 1 EACH TABLET PO PRN ×3 (08:57→21:57)
[2019-09-16] MEDS: ACETAMINOPHEN 325 MG TABLET PO PRN ×2 (12:23→19:12)
[2019-09-16 16:00] VITALS: BP 103/57
[2019-09-16] MEDS: IV NS 0.9% 1,000 ML IV PRN (16:56)
[2019-09-16] MEDS: ALBUTEROL FS 2.5 MG/3 ML VIAL.NEB NEB PRN (17:24)
--- NOTE | 2019-09-16 18:49 | NUR ---
MS RN NOTES PATIENT IN BED, ALERT ORIENTED X 2. BREATHING IS EVEN AND UNLABORED. SHOWS NO SOB, NO ACUTE DISTRESS. IV ON RAC #20G CLEAN, DRY AND INTACT. NO REDNESS, NO INFILTRATION. RUNNING NS AT 75ML/HR. ALL PATIENT NEEDS ARE MET. BED KEPT IN LOWEST POSITION AND LOCKED. CALL LIGHT KEPT WITH IN REACH. WILL CONTINUE TO MONITOR.
--- NOTE | 2019-09-16 19:15 | NUR ---
ms florencio initial notes received report from am nurse Garrett while doing our rounds and saw pt in bed awake and alert on semi fowlers position with side rails x2 up. breathing even and nonlabored . skin warm and dry to touch. complaining of mild pain and dayshift just gave some tylenol. kept her warm and comfortable at all times. will continue monitoring.
[2019-09-16 20:00] VITALS: BP 125/67
--- NOTE | 2019-09-16 20:07 | NUR ---
MS RN RECEIVE PT IN BED A/O X2, STABLE AND NOT IN DISTRESS, RESPIRATIONS EVEN AND UNLABORED. WILL CONT TO MTR
[2019-09-16 21:52] VITALS: BP 125/67
[2019-09-17] MEDS: LORAZEPAM INJ 2 MG/ML VIAL IV PRN ×2 (01:42→21:02)
--- NOTE | 2019-09-17 06:21 | NUR ---
MS RN ASLEEP AND EASILY AWAKEN, SLEPT WELL, OFFLOAD HEELS AND ELBOWS AT ALL TIMES. NO S/S OF DISTRESS, ASSISTED REPOSITION Q2HR, NURSING CARE RENDERED, KEPT CLEAN AND DRY AND COMFORTABLE. NEEDS ATTENDED AND ANTICIPATED. SAFETY MEASURES AT ALL TIMES. ENDORSE TO THE NEXT SHIF
[2019-09-17 06:22] LABS: BASOPHILS % (AUTO) 0.3 % (0.0-2.0); EOSINOPHILS % (AUTO) 7.6 % (0.0-6.0); HEMATOCRIT 23 % (33-45); HEMOGLOBIN 7.7 g/dL (11.5-14.8); LYMPHOCYTES # (AUTO) 0.8 /CMM (0.8-4.8); LYMPHOCYTES % (AUTO) 12.7 % (20.0-44.0); MEAN CORPUSCULAR HGB CONC 34 g/dl (31.0-36.0); MEAN CORPUSCULAR VOLUME 91 fL (82-100); MONOCYTES # (AUTO) 0.5 /CMM (0.1-1.30); MONOCYTES % (AUTO) 7.8 % (2.0-12.0); NEUTROPHILS # (AUTO) 4.8 /CMM (1.8-8.9); NEUTROPHILS % (AUTO) 71.6 % (43.0-81.0); PLATELET COUNT (AUTO) 228 /CMM (150-450); RED BLOOD CELL COUNT(AUTO) 2.49 MIL/uL (4.0-5.2); WHITE BLOOD COUNT (AUTO) 6.7 K/uL (4.3-11.0)
[2019-09-17 06:46] LABS: CALCIUM, SERUM 7.9 mg/dL (8.5-10.1); CREATININE 0.6 mg/dL (0.6-1.3); MAGNESIUM 1.7 mg/dL (1.8-2.4); PHOSPHORUS 2.8 mg/dL (2.5-4.9); POTASSIUM 3.6 mmol/L (3.5-5.1)
--- NOTE | 2019-09-17 07:36 | NUR ---
MS RN OPENING NOTES RECEIVED PATIENT IN BED RESTING COMFORTABLY IN MODERATE HIGH BACK REST. A/O X 2. NO SIGNS OF DISTRESS NOTED AT THIS TIME. IV FLUIDS ON RAC #20 WITH NS RUNNING @75ML/HR. PATENT AND INTACT. SAFETY MEASURES IN PLACE, BED IN LOW LOCKED POSITION WITH SIDE RAILS UPX2. CALL LIGHT WITHIN REACH. WILL CONTINUE TO MONITOR.
[2019-09-17 08:00] VITALS: BP 97/53
[2019-09-17] MEDS: PANTOPRAZOLE 40 MG VIAL IV SCH ×2 (08:13→21:02)
[2019-09-17] MEDS: HYDROGEL DRESSING 90 GM TUBE TP SCH (08:15)
[2019-09-17] MEDS: Magnesium 1GM/D5W 100ML PREMIX 100 ML IV SCH ×2 (10:39→11:49)
[2019-09-17] MEDS: ACETAMINOPHEN 325 MG TABLET PO PRN ×2 (11:24→18:30)
[2019-09-17] MEDS: ALBUTEROL FS 2.5 MG/3 ML VIAL.NEB NEB PRN (11:28)
--- NOTE | 2019-09-17 11:30 | NUR ---
RN NOTES SEEN AND EXAMINED BY JOSE DHALIWAL NP. NEW ORDERS OF OB STOOL. WILL CONTINUE TO MONITOR.
[2019-09-17] MEDS: METOCLOPRAMIDE HCL 10 MG/10 ML UDC GT SCH ×2 (13:29→21:02)
[2019-09-17] MEDS: SOD FERRIC GLUC 125 MG in IV NS 0.9% 100 ML IV SCH (14:09)
[2019-09-17] MEDS: IV NS 0.9% 1,000 ML IV PRN (14:10)
[2019-09-17] MEDS: EPOETIN ALFA (20,000 UNIT) 20,000 UNIT/ML VIAL SQ SCH (14:11)
[2019-09-17 16:00] VITALS: BP 97/48
--- NOTE | 2019-09-17 18:42 | NUR ---
MS RN CLOSING NOTES PATIENT IN BED RESTING COMFORTABLY IN MODERATE HIGH BACK REST. A/O X 2. NO SIGNS OF DISTRESS NOTED THROUGHOUT THE SHIFT. IV FLUIDS ON R HAND #22 WITH NS RUNNING @75ML/HR. PATENT AND INTACT. SAFETY MEASURES IN PLACE, BED IN LOW LOCKED POSITION WITH SIDE RAILS UPX2. CALL LIGHT WITHIN REACH. WILL ENDORSE TO IVF EMBRYOLOGIST NURSE FOR MOLLY.
[2019-09-17] MEDS: HYDROCODONE/APAP 5/325MG 1 EACH TABLET PO PRN (19:47)
[2019-09-17 20:00] VITALS: BP 114/54
--- NOTE | 2019-09-17 20:00 | NUR ---
MS RN NOTES RECEIVED PATIENT AWAKE IN BED WITH NO DISTRESS NOTED. CALL LIGHT WITHIN REACH. WITH C/O 9/10 ACHING GENERALIZED BODY PAIN. PRN NORCO GIVEN, WILL CONTINUE TO MONITOR FOR EFFECTIVENESS. PERIPHERAL LINE INTACT AND PATENT. ENCOURAGED USE OF CALL LIGHT FOR ASSISTANCE AND VERBALIZED/DEMONSTRATED GOOD UNDERSTANDING. BED ALARM ON AND FUNCTIONING PROPERLY. ROOM FREE OF CLUTTER AND BELONGINGS KEPT NEAR BEDSIDE. BED IN LOW LOCK SETTING. WILL CONTINUE TO MONITOR.
[2019-09-18] MEDS: IV NS 0.9% 1,000 ML IV PRN (03:07)
[2019-09-18] MEDS: METOCLOPRAMIDE HCL 10 MG/10 ML UDC GT SCH ×3 (05:30→21:02)
--- NOTE | 2019-09-18 06:36 | NUR ---
MS RN NOTES PATIENT ASLEEP IN BED WITH NO DISTRESS NOTED. CALL LIGHT WITHIN REACH. ALL DUE MEDS GIVEN ORDERED WITH NO ASE NOTED. PERIPHERAL LINE REMAINS INTACT AND PATENT. NO FURTHER C/O PAIN OR DISCOMFORT. BED IN LOW LOCK SETTING. ROOM FREE OF CLUTTER AND BELONGINGS KEPT NEAR BEDSIDE. WILL ENDORSE TO ONCOMING SHIFT.
[2019-09-18 06:54] LABS: BASOPHILS % (AUTO) 0.5 % (0.0-2.0); EOSINOPHILS % (AUTO) 8.1 % (0.0-6.0); HEMATOCRIT 23 % (33-45); HEMOGLOBIN 7.6 g/dL (11.5-14.8); LYMPHOCYTES # (AUTO) 1.1 /CMM (0.8-4.8); MEAN CORPUSCULAR HGB CONC 33 g/dl (31.0-36.0); MEAN CORPUSCULAR VOLUME 91 fL (82-100); MONOCYTES # (AUTO) 0.5 /CMM (0.1-1.30); MONOCYTES % (AUTO) 10.5 % (2.0-12.0); NEUTROPHILS # (AUTO) 3.1 /CMM (1.8-8.9); NEUTROPHILS % (AUTO) 59.9 % (43.0-81.0); PLATELET COUNT (AUTO) 246 /CMM (150-450); WHITE BLOOD COUNT (AUTO) 5.2 K/uL (4.3-11.0)
[2019-09-18 07:08] LABS: CALCIUM, SERUM 7.9 mg/dL (8.5-10.1); CREATININE 0.6 mg/dL (0.6-1.3); POTASSIUM 3.8 mmol/L (3.5-5.1)
[2019-09-18] MEDS: MAGNESIUM HYDROXIDE 30 ML UDC PO PRN (07:30)
--- NOTE | 2019-09-18 07:36 | NUR ---
MS RN OPENING NOTES RECEIVED PATIENT IN BED RESTING COMFORTABLY IN MODERATE HIGH BACK REST. A/O X 2. NOTED WITH IV FLUIDS OF NS RUNNING @75ML/HR. PATENT AND INTACT. NO ACUTE SIGNS OF DISTRESS NOTED AT THIS TIME. SAFETY MEASURES IN PLACE, BED IN LOW LOCKED POSITION WITH SIDE RAILS UP X2. CALL LIGHT WITHIN EASY REACH. WILL CONTINUE TO MONITOR.
[2019-09-18] MEDS: ALBUTEROL FS 2.5 MG/3 ML VIAL.NEB NEB PRN ×2 (07:45→15:08)
[2019-09-18 08:00] VITALS: BP 112/60
[2019-09-18] MEDS: PANTOPRAZOLE 40 MG VIAL IV SCH ×2 (08:23→21:02)
[2019-09-18] MEDS: HYDROGEL DRESSING 90 GM TUBE TP SCH (08:27)
[2019-09-18] MEDS: HYDROCODONE/APAP 5/325MG 1 EACH TABLET PO PRN ×2 (09:03→20:22)
[2019-09-18 09:51] LABS: PHOSPHORUS 3.2 mg/dL (2.5-4.9)
[2019-09-18] MEDS: LORAZEPAM INJ 2 MG/ML VIAL IV PRN (12:12)
[2019-09-18] MEDS: SOD FERRIC GLUC 125 MG in IV NS 0.9% 100 ML IV SCH (13:37)
--- NOTE | 2019-09-18 14:36 | NUR ---
RN NOTES SEEN AND EXAMINED BY JOSE DHALIWAL NP. NEW ORDER OF CHEST XR. ORDER MADE AND CARRIED OUT.
[2019-09-18 16:00] VITALS: BP 113/60
[2019-09-18] MEDS: ACETAMINOPHEN 325 MG TABLET PO PRN (16:23)
--- NOTE | 2019-09-18 18:48 | NUR ---
MS RN CLOSING NOTES PATIENT IN BED RESTING COMFORTABLY IN MODERATE HIGH BACK REST. A/O X 2. IV ACCESS ON RIGHT HAND #22, SL. PATENT AND INTACT. ALL NURSING NEEDS PROVIDED. SAFETY MEASURES IN PLACE, BED IN LOW LOCKED POSITION WITH SIDE RAILS UP X2. CALL LIGHT WITHIN EASY REACH. WILL ENDORSE TO PARALEGAL ASSISTANT NURSE FOR MOLLY.
--- NOTE | 2019-09-18 19:10 | NUR ---
MS RN OPENING NOTES RECEIVED PATIENT IN BED RESTING COMFORTABLY IN MODERATE HIGH BACK REST. A/O X 2. BREATHING EVEN AND UNLABORED. NO ACUTE SIGNS OF DISTRESS NOTED AT THIS TIME. SAFETY MEASURES IN PLACE, BED IN LOW LOCKED POSITION WITH SIDE RAILS UP X2. CALL LIGHT WITHIN EASY REACH. BED IN LOWEST, LOCKED POSITION. WILL CONTINUE TO MONITOR ACCORDINGLY.
[2019-09-18 20:00] VITALS: BP 127/51
[2019-09-19] MEDS: MAGNESIUM HYDROXIDE 30 ML UDC PO PRN (05:16)
[2019-09-19] MEDS: METOCLOPRAMIDE HCL 10 MG/10 ML UDC GT SCH ×3 (05:16→21:32)
[2019-09-19] MEDS: ALBUTEROL FS 2.5 MG/3 ML VIAL.NEB NEB PRN (05:20)
[2019-09-19 06:56] LABS: BASOPHILS % (AUTO) 0.4 % (0.0-2.0); HEMATOCRIT 26 % (33-45); HEMOGLOBIN 8.7 g/dL (11.5-14.8); LYMPHOCYTES # (AUTO) 1.6 /CMM (0.8-4.8); LYMPHOCYTES % (AUTO) 21.5 % (20.0-44.0); MEAN CORPUSCULAR HGB CONC 33 g/dl (31.0-36.0); MEAN CORPUSCULAR VOLUME 92 fL (82-100); MONOCYTES # (AUTO) 0.6 /CMM (0.1-1.30); MONOCYTES % (AUTO) 7.8 % (2.0-12.0); NEUTROPHILS # (AUTO) 4.8 /CMM (1.8-8.9); NEUTROPHILS % (AUTO) 64.3 % (43.0-81.0); PLATELET COUNT (AUTO) 296 /CMM (150-450); RED BLOOD CELL COUNT(AUTO) 2.85 MIL/uL (4.0-5.2); WHITE BLOOD COUNT (AUTO) 7.4 K/uL (4.3-11.0)
--- NOTE | 2019-09-19 07:04 | NUR ---
MS RN CLOSING NOTES PATIENT ASLEEP IN BED WITH NO DISTRESS NOTED. CALL LIGHT WITHIN REACH. ALL DUE MEDS GIVEN ORDERED. PERIPHERAL LINE REMAINS INTACT AND PATENT. NO FURTHER C/O PAIN OR DISCOMFORT. SAFETY MEASURES IN PLACE. BED IN LOW LOCK SETTING. ROOM FREE OF CLUTTER AND BELONGINGS KEPT NEAR BEDSIDE. WILL ENDORSE TO ONCOMING SHIFT.
[2019-09-19 07:12] LABS: MAGNESIUM 1.8 mg/dL (1.8-2.4); PHOSPHORUS 2.9 mg/dL (2.5-4.9)
[2019-09-19 08:00] VITALS: BP 112/45
[2019-09-19] MEDS: PANTOPRAZOLE 40 MG VIAL IV SCH ×2 (08:39→20:19)
[2019-09-19] MEDS: HYDROGEL DRESSING 90 GM TUBE TP SCH (08:45)
[2019-09-19] MEDS: ACETAMINOPHEN 325 MG TABLET PO PRN ×2 (08:45→18:22)
[2019-09-19] MEDS: LORAZEPAM INJ 2 MG/ML VIAL IV PRN (12:33)
--- NOTE | 2019-09-19 13:24 | NUR ---
RN NOTES SEEN AND EXAMINED BY JOSE DHALIWAL NP WITH NEW ORDERS OF MIRALAX 1 PACK DAILY AND INCENTIVE SPIROMETER. ORDERS MADE AND CARRIED OUT. Addendum: 09/19/19 at 1330 by ZACH SILVA RN incentive spirometer provided to the patient.
[2019-09-19] MEDS: SOD FERRIC GLUC 125 MG in IV NS 0.9% 100 ML IV SCH (13:36)
[2019-09-19 16:00] VITALS: BP 101/42
[2019-09-19] MEDS: PROSOURCE / PROSTAT (PYXIS) 30 ML UDC GT SCH (17:21)
--- NOTE | 2019-09-19 18:30 | NUR ---
MS RN CLOSING NOTES PATIENT IN BED RESTING COMFORTABLY IN MODERATE HIGH BACK REST. A/O X 2. IV ACCESS ON RIGHT HAND #22, SL. PATENT AND INTACT. ALL NURSING NEEDS PROVIDED. SAFETY MEASURES IN PLACE, BED IN LOW LOCKED POSITION WITH SIDE RAILS UP X2. CALL LIGHT WITHIN EASY REACH. WILL ENDORSE TO SOCIAL WORK ADMINISTRATOR NURSE FOR MOLLY.
--- NOTE | 2019-09-19 19:15 | NUR ---
MS RN OPENING NOTES RECEIVED PATIENT FROM MORNING SHIFT, ALERT AND ORIENTED X 2 FORGETFUL WITH EPISODES OF CONFUSION. VERBALLY RESPONSIVE AND ABLE TO FOLLOW DIRECTIONS. BREATHING REGULAR AND UNLABORED ON OXYGEN AT 2L/MIN VIA NASAL CANNULA. RIGHT HAND G22 IV LINE INTACT AND PATENT FLUSHING WELL WITH NO BLEEDING OR S/S OF INFECTION/INFILTRATION NOTED. NO COMPLAINTS OF PAIN/DISCOMFORT REPORTED OF THE TIME. BED LOW AND LOCKED ON SEMI FOWLERS POSITION. CALL LIGHT AND IMPORTANT BELONGINGS IN REACH. WILL CONTINUE TO MONITOR.
[2019-09-19 20:00] VITALS: BP 115/56
[2019-09-19] MEDS: HYDROCODONE/APAP 5/325MG 1 EACH TABLET PO PRN (20:19)
--- NOTE | 2019-09-19 20:30 | NUR ---
MS RN NOTES COMPLAINED OF 6/10 LOWER HEAD PAIN, NORCO 5/325 GIVEN BY MOUTH. VITAL SIGN WNL. NON PHARMACOLOGICAL INTERVENTIONS DONE. WILL CONTINUE TO MONITOR.
[2019-09-19 22:00] VITALS: BP 115/56
--- NOTE | 2019-09-19 22:00 | NUR ---
MS RN NOTES ASSISTED TRIM MASTER OPERATOR ON CLEANING AND CHANGING THE PATIENT. BODY ASSESSMENT DONE, STILL NOTED WITH SACRAL OPEN WOUNDS. PHOTO TAKEN ATTACHED TO THE CHART. ON-GOING TREATMENT PROVIDED. REPOSITIONED PATIENT ON HER RIGHT SIDE. WILL CONTINUE TO MONITOR.
[2019-09-20] MEDS: METOCLOPRAMIDE HCL 10 MG/10 ML UDC GT SCH ×3 (05:22→20:36)
[2019-09-20] MEDS: MAGNESIUM HYDROXIDE 30 ML UDC PO PRN (05:22)
--- NOTE | 2019-09-20 06:12 | NUR ---
MS RN CLOSING NOTES PATIENT IN BED, ALERT AND ORIENTED X 2 FORGETFUL WITH EPISODES OF CONFUSION. VERBALLY RESPONSIVE AND ABLE TO FOLLOW DIRECTIONS. BREATHING REGULAR AND UNLABORED ON OXYGEN AT 2L/MIN VIA NASAL CANNULA; LATEST SPO2 96%. RIGHT HAND G22 IV LINE INTACT AND PATENT FLUSHING WELL. COMPLAINED OF NOT HAVING BOWEL MOVEMENT FOR 2DAYS, MILK OF MAGNESIA GIVEN BY MOUTH. NONPHARMACOLOGICAL INTERVENTIONS DONE. BED LOW AND LOCKED ON SEMI FOWLERS POSITION. CALL LIGHT AND IMPORTANT BELONGINGS IN REACH. WILL ENDORSE TO MORNING SHIFT FOR MOLLY.
[2019-09-20 07:00] LABS: BASOPHILS % (AUTO) 0.4 % (0.0-2.0); EOSINOPHILS % (AUTO) 5.2 % (0.0-6.0); HEMATOCRIT 29 % (33-45); HEMOGLOBIN 9.5 g/dL (11.5-14.8); LYMPHOCYTES # (AUTO) 1.4 /CMM (0.8-4.8); MEAN CORPUSCULAR HGB CONC 33 g/dl (31.0-36.0); MEAN CORPUSCULAR VOLUME 92 fL (82-100); MONOCYTES # (AUTO) 0.6 /CMM (0.1-1.30); NEUTROPHILS # (AUTO) 4.6 /CMM (1.8-8.9); NEUTROPHILS % (AUTO) 65.4 % (43.0-81.0); PLATELET COUNT (AUTO) 322 /CMM (150-450); RED BLOOD CELL COUNT(AUTO) 3.11 MIL/uL (4.0-5.2); WHITE BLOOD COUNT (AUTO) 7.1 K/uL (4.3-11.0)
[2019-09-20 07:17] LABS: CALCIUM, SERUM 8.8 mg/dL (8.5-10.1); CREATININE 0.6 mg/dL (0.6-1.3); MAGNESIUM 1.7 mg/dL (1.8-2.4); PHOSPHORUS 2.7 mg/dL (2.5-4.9); POTASSIUM 3.9 mmol/L (3.5-5.1)
[2019-09-20 08:00] VITALS: BP 115/50
--- NOTE | 2019-09-20 08:00 | NUR ---
MS RN NOTES PATIENT IN BED RESTING NO SOB OR ACUTE DISTRESS NOTED. PATIENT ALERT, ORIENTED X2. BED IN LOW LOCKED POSITION. CALL LIGHT WITHIN REACH. WILL CONTINUE TO MONITOR.
[2019-09-20] MEDS: POLYETHYLENE GLYCOL 3350 17 GM POWD.PACK PO SCH (08:32)
[2019-09-20] MEDS: PANTOPRAZOLE 40 MG VIAL IV SCH ×2 (08:32→20:36)
[2019-09-20] MEDS: PROSOURCE / PROSTAT (PYXIS) 30 ML UDC GT SCH ×3 (08:33→16:01)
[2019-09-20] MEDS: HYDROCODONE/APAP 5/325MG 1 EACH TABLET PO PRN (08:33)
[2019-09-20] MEDS: HYDROGEL DRESSING 90 GM TUBE TP SCH (08:39)
[2019-09-20] MEDS: Magnesium 1GM/D5W 100ML PREMIX 100 ML IV SCH ×2 (11:49→13:10)
--- NOTE | 2019-09-20 12:00 | NUR ---
MS RN NOTES PATIENT NOTED WITH INCREASED SOB. DR. ZOE TEMPLETON MADE AWARE ORDERS FOR CHEST XRAY. PATIENT SATURATION AT95% VS WNL. WILL CONTINUE TO MONITOR.
[2019-09-20] MEDS ORDERED: FUROSEMIDE 20 MG/2 ML VIAL IV ONE (12:30)
--- NOTE | 2019-09-20 12:30 | NUR ---
MS RN NOTES PATIENT EVALUATED BY DR. ZOE TEMPLETON CHEST XRAY RESULTS REVIEWED, ORDERS OBTAINED FOR 20MG LASIX IV NOTED AND CARRIED OUT. WILL CONTINUE TO MONITOR.
[2019-09-20] MEDS: SOD FERRIC GLUC 125 MG in IV NS 0.9% 100 ML IV SCH (14:33)
[2019-09-20] MEDS: EPOETIN ALFA (20,000 UNIT) 20,000 UNIT/ML VIAL SQ SCH (15:58)
[2019-09-20 16:00] VITALS: BP 109/56
[2019-09-20] MEDS ORDERED: EPOE200011 SQ (16:55)
[2019-09-20] MEDS ORDERED: Prosource GT (16:55)
[2019-09-20] MEDS ORDERED: Hydrogel Dressing TP (16:55)
[2019-09-20] MEDS ORDERED: PANT40TA2 PO (16:55)
--- NOTE | 2019-09-20 18:21 | NUR ---
MS RN NOTES PATIENT IN BED RESTING NO SOB OR ACUTE DISTRESS NOTED. PATIENTS SOB HAS RESOLVED. ALL DUE MEDICATIONS ADMINISTERED. ALL NEEDS MET. WILL ENDORSE CARE TO PM SHIFT. PATIENT WITH DISCHARGE ORDER WAITING FOR PLACEMENT TO SNF. WILL ENDORSE CARE TO PM SHIFT.
[2019-09-20 20:29] VITALS: BP 107/52
[2019-09-20 22:00] VITALS: BP 107/52
[2019-09-21] MEDS: METOCLOPRAMIDE HCL 10 MG/10 ML UDC GT SCH ×2 (05:10→13:58)
--- NOTE | 2019-09-21 06:11 | NUR ---
MS RN CLOSING NOTES PATIENT IN BED, ALERT AND ORIENTED X 2 FORGETFUL WITH EPISODES OF CONFUSION. VERBALLY RESPONSIVE AND ABLE TO FOLLOW DIRECTIONS. BREATHING REGULAR AND UNLABORED ON OXYGEN AT 2L/MIN VIA NASAL CANNULA; LATEST SPO2 97%. LEFT AC G22 IV LINE INTACT AND PATENT FLUSHING WELL. BED LOW AND LOCKED ON SEMI FOWLERS POSITION. CALL LIGHT AND IMPORTANT BELONGINGS IN REACH. WILL ENDORSE TO MORNING SHIFT FOR MOLLY.
[2019-09-21 06:57] LABS: CALCIUM, SERUM 8.6 mg/dL (8.5-10.1); CREATININE 0.6 mg/dL (0.6-1.3); MAGNESIUM 2.1 mg/dL (1.8-2.4)
[2019-09-21 08:00] VITALS: BP 116/62
--- NOTE | 2019-09-21 08:00 | NUR ---
MS RN AM NOTES PATIENT IN BED, ALERT AND ORIENTED X 2 FORGETFUL WITH EPISODES OF CONFUSION. VERBALLY RESPONSIVE AND ABLE TO FOLLOW DIRECTIONS. BREATHING REGULAR AND UNLABORED ON OXYGEN AT 2L/MIN VIA NASAL CANNULA; LATEST SPO2 97%. LEFT AC G22 IV LINE INTACT AND PATENT FLUSHING WELL. BED LOW AND LOCKED ON SEMI FOWLERS POSITION. CALL LIGHT WITHIN REACH.
[2019-09-21] MEDS: POLYETHYLENE GLYCOL 3350 17 GM POWD.PACK PO SCH (09:10)
[2019-09-21] MEDS: PANTOPRAZOLE 40 MG VIAL IV SCH (09:11)
[2019-09-21] MEDS: PROSOURCE / PROSTAT (PYXIS) 30 ML UDC GT SCH ×3 (09:13→17:02)
[2019-09-21] MEDS: HYDROGEL DRESSING 90 GM TUBE TP SCH (09:14)
[2019-09-21] MEDS: HYDROCODONE/APAP 5/325MG 1 EACH TABLET PO PRN ×3 (10:05→17:45)
--- NOTE | 2019-09-21 14:00 | NUR ---
SPOKE TO CHIEF KNOWLEDGE OFFICERBOB WHO STATED THAT THEY ARE STILL WAITING FOR PT'S AUTHORIZATION TO BE TRANSFERRED BACK TO [facility] BECAUSE THERE IS NO AVAILABLE FEMALE BED IN [facility] (PT'S [facility]S [facility] OF CHOICE) AND AGREED TO BRING PT BACK TO [facility].BOB SPOKE TO PT'S SON ESTEBAN.
[2019-09-21] MEDS: SOD FERRIC GLUC 125 MG in IV NS 0.9% 100 ML IV SCH (15:14)
[2019-09-21 16:00] VITALS: BP 106/56
--- NOTE | 2019-09-21 19:00 | NUR ---
PT AWAITING FOR [facility] FOR VP CLIENT SERVICES.REPORT CALLED IN TO LIO OF [facility].PT DENIES ANY PAIN OR DISTRESS.LEFT MESSAGE IN 'S(MARIYA) VOICEMAIL.ENDORSED TO NIGHT NURSE CARE.
--- NOTE | 2019-09-21 19:49 | NUR ---
ms/rn opening notes RECEIVED PATIENT IN BED, AWAKE, ABLE TO VERBALIZE NEEDS, RESPIRATIONS EVEN AND UNLABORED BUT REQUIRING OXYGENATION AT 3L FOR COMFORT , SKIN ASSESSMENT DONE WITH PHOTOS OF WOUND TAKE, ,SKIN WARM TO TOUCH, PER AM RN , AWAITING FOR TRANSPORT AND REPORTED WILL BE COMING IN AN HOUR, PATIETN TO BE DISCHARGE TODAY TO [facility]. BED LOCKED, CALL LIGHTS WITHIN REACH, BELONGINGS CHECKED. WILL MONITOR. AND CONTINUE TO PROVIDED CARE.
--- NOTE | 2019-09-21 20:30 | NUR ---
MS/RN NOTES PATIENT IV SITE REMOVED AND ID BAND, 2 EMT ARRIVE TO TRANSPORT INESSA TO [facility] ON A GURNEY WITH OXYGEN VITAL SIGNS AT 99/51, PULSE 100, RESPIRATION 18, TEMPERATURE AT 97.8 AND ON OXYGEN VIA NC AT 3L AT 93%, DISCHARGE PAPER WORKS GIVEN, IV REMOVED. ID BAND REMOVED.
== END 2019-09-21 20:40 | DRG 133 ==
LOC: ER 06:54 → TELE 09:27 → MED 09-13 08:36
PROVIDERS: ADMIT Nurse Practitioner Acute Care; ATTEND Internal Medicine
PROC: 0JB70ZZ Excision of Back Subcutaneous Tissue and Fascia, Open Approach (ICD-10-PCS; principal; 2019-09-13)
PROC: 0DB98ZX Excision of Duodenum, Via Natural or Artificial Opening Endoscopic, Diagnostic (ICD-10-PCS; 2019-09-15)
PROC: 0JB70ZZ Excision of Back Subcutaneous Tissue and Fascia, Open Approach (ICD-10-PCS; 2019-09-20)
DX: K13.79 Other lesions of oral mucosa (principal); L89.153 Pressure ulcer of sacral region, stage 3; R53.2 Functional quadriplegia; E87.1 Hypo-osmolality and hyponatremia; E44.0 Moderate protein-calorie malnutrition; D68.59 Other primary thrombophilia; E86.1 Hypovolemia; E87.6 Hypokalemia; Z68.23 Body mass index [BMI] 23.0-23.9, adult; D50.9 Iron deficiency anemia, unspecified; E03.9 Hypothyroidism, unspecified; E78.5 Hyperlipidemia, unspecified; F32.9 Major depressive disorder, single episode, unspecified; F41.9 Anxiety disorder, unspecified; E83.42 Hypomagnesemia; G89.29 Other chronic pain; E87.8 Other disorders of electrolyte and fluid balance, not elsewhere classified; M54.9 Dorsalgia, unspecified; E83.51 Hypocalcemia; K31.84 Gastroparesis; K29.80 Duodenitis without bleeding; K44.9 Diaphragmatic hernia without obstruction or gangrene; K20.9 Esophagitis, unspecified; J45.909 Unspecified asthma, uncomplicated; S30.820A Blister (nonthermal) of lower back and pelvis, initial encounter; X58.XXXA Exposure to other specified factors, initial encounter; Y92.89 Other specified places as the place of occurrence of the external cause; Z74.01 Bed confinement status
CPT/HCPCS: 36415; 36600; 70450-TC; 71045-TC; 80048-TC; 80061-TC; 80076-TC; 81000-TC; 82272-TC; 82728-TC; 83540-TC; 83605-TC; 83735-TC; 84100-TC; 84484-TC; 85025-TC; 85027-TC; 85045-TC; 85730-TC; 87040-TC; 87081-TC; 88305-TC; 94799-TC; 97110-TC; 97530-TC; A6248; A6253; A6403; C9113; G0378; J0885; J1940; J2060; J2704; J2916; J3475; J3480; J3490; J7030; J7040; J7050; J8597

== ENCOUNTER 2022-03-08 21:19 | Emergency (ER) | payer BC ==
[~2022-03-08] VITALS: Ht 165.1 cm; Wt 54.4 kg
[~2022-03-08 21:19] MED LIST changes: +ACET-868 PO; -AMIT25TA52 PO; +ASCO-352 PO; -ASPI-1169 PO; -ATOR10TA PO; +BISA10SU11 RC; +DIAZ5TAB4 PO; +EPOE200011 SQ; -FLUO40CA8 PO; +FLUT1BLS IH; +HYDR-4384 PO; +Hydrogel Dressing TP; -LEVO500T75 PO; +MAGN400O6 PO; +MIRT7.5T10 PO; +MULT-447 PO; +NA P133E RC; +PANT40TA2 PO; +POLY17PO4 PO; +PRED2.5T PO; +Prosource GT; +TRAM50TA2 PO; +ZINC1CAP2 PO
--- NOTE | 2022-03-08 21:55 | NUR ---
TO ER BED 10. BIBRA 77 C/O STEAK STUCK IN THROAT WHILE EATING DINNER. PT ON 3L OF OXYGEN FROM HOME. PT STATES "STEAK NO LONGER THERE UPON ARRIVAL". DENIES ANY CHOKING OR CHEST PAIN. CONNECTED TO MONITOR AND O2. AWAITING MD VALENCIA
--- NOTE | 2022-03-08 22:03 | NUR ---
LELE AMES [phone] (CAREGIVER)
--- NOTE | 2022-03-08 22:55 | NUR ---
PT TAKEN FOR CT SCAN
[2022-03-09 00:23] VITALS: BP 132/70
--- NOTE | 2022-03-09 00:23 | NUR ---
Patient discharged to home in stable condition. Written and verbal after care instructions given. Patient verbalizes understanding of instruction.
== END 2022-03-09 00:24 | disposition home or self-care (01) ==
LOC: ER 21:28
DX: R09.89 Other specified symptoms and signs involving the circulatory and respiratory systems (principal); Z71.1 Person with feared health complaint in whom no diagnosis is made; G43.909 Migraine, unspecified, not intractable, without status migrainosus; F41.1 Generalized anxiety disorder; F32.9 Major depressive disorder, single episode, unspecified; E03.9 Hypothyroidism, unspecified; Z98.890 Other specified postprocedural states; Z88.8 Allergy status to other drugs, medicaments and biological substances; Z60.2 Problems related to living alone; Z79.899 Other long term (current) drug therapy
CPT/HCPCS: 70490-TC

== ENCOUNTER 2022-06-27 11:50 | Inpatient (IN) | payer BC ==
[~2022-06-27] VITALS: Ht 167.6 cm; Wt 53.1 kg
--- NOTE | 2022-06-27 11:55 | NUR ---
DELFINO 77 FROM HOME, REPORTED TO HAVE SYNCOPAL EPISODE GOING TO THE BATHROOM. PER EMS, PT C/O CHEST PAIN AND CAREGIVER STARTED CPR. TO ER BED 7.
[2022-06-27] MEDS ORDERED: FAMO20TA8 PO (12:09)
[2022-06-27] MEDS ORDERED: DOCU-141 PO (12:09)
[2022-06-27] MEDS ORDERED: TEMA15CA PO (12:09)
[2022-06-27] MEDS ORDERED: FLUO20TA28 PO (12:09)
[2022-06-27] MEDS ORDERED: HYDR-3972 PO (12:09)
[2022-06-27] MEDS ORDERED: ENOX40DI SQ (12:09)
[2022-06-27] MEDS ORDERED: SENN-301 PO (12:09)
--- NOTE | 2022-06-27 12:18 | NUR ---
TECH AT BEDSIDE FOR EKG
--- NOTE | 2022-06-27 12:43 | NUR ---
IV LINE ESTABLISHED ON LAC #20, BLOOD DRAWN AND SENT TO LAB
[2022-06-27 12:50] LABS: BASOPHILS % (AUTO) 0.3 % (0.0-2.0); EOSINOPHILS % (AUTO) 1.5 % (0.0-6.0); HEMATOCRIT 36 % (33-45); HEMOGLOBIN 12.1 g/dL (11.5-14.8); LYMPHOCYTES # (AUTO) 0.5 K/uL (0.8-4.8); LYMPHOCYTES % (AUTO) 8.1 % (20.0-44.0); MEAN CORPUSCULAR HGB CONC 34 g/dl (31.0-36.0); MEAN CORPUSCULAR VOLUME 95 fL (82-100); MONOCYTES # (AUTO) 0.3 K/uL (0.1-1.30); MONOCYTES % (AUTO) 5.2 % (2.0-12.0); NEUTROPHILS # (AUTO) 5.1 K/uL (1.8-8.9); NEUTROPHILS % (AUTO) 84.9 % (43.0-81.0); PLATELET COUNT (AUTO) 175 K/uL (150-450); RED BLOOD CELL COUNT(AUTO) 3.81 MIL/uL (4.0-5.2)
--- NOTE | 2022-06-27 12:55 | NUR ---
PT TAKEN TO RADIOLOGY FOR CT
--- NOTE | 2022-06-27 13:02 | NUR ---
Lea [phone] caregiver.
--- NOTE | 2022-06-27 13:03 | NUR ---
CALLI LEVY SUBMITTED.
--- NOTE | 2022-06-27 13:05 | NUR ---
PT BACK FROM RADIOLOGY
[2022-06-27 13:22] LABS: CALCIUM, SERUM 8.9 mg/dL (8.5-10.1); CARBON DIOXIDE 29 mmol/L (21-32); CHLORIDE 105 mmol/L (98-107); GLUCOSE 135 mg/dL (74-106); POTASSIUM 4.3 mmol/L (3.5-5.1); SODIUM SERUM 141 mmol/L (136-145); UREA NITROGEN, BLOOD 18 mg/dL (7-18)
[2022-06-27 13:33] LABS: ALANINE AMINOTRANSFERASE 18 U/L (12-78); ALBUMIN 3.7 g/dL (3.4-5.0); ALKALINE PHOSPHATASE 86 U/L (46-116); ASPARTATE AMINOTRANSFERASE 18 U/L (15-37); BILIRUBIN,DIRECT 0.1 mg/dL (0.0-0.2); BILIRUBIN,TOTAL 0.5 mg/dL (0.2-1.0); TOTAL PROTEIN, SERUM 6.9 g/dL (6.4-8.2)
--- NOTE | 2022-06-27 14:00 | NUR ---
[facility] CALLED PATCHER HELPER PAGED.
--- NOTE | 2022-06-27 14:20 | NUR ---
COVID SWAB COLLECTED AND SENT TO LAB
[2022-06-27] MEDS ORDERED: MORPHINE SULFATE INJ 2 MG/ML DISP.SYRIN IV PRN (14:30)
[2022-06-27] MEDS ORDERED: Z GUARD REMEDY 4 OZ OINT TP PRN (14:30)
[2022-06-27] MEDS ORDERED: ONDANSETRON HCL/PF 4 MG/2 ML VIAL IVP PRN (14:30)
--- NOTE | 2022-06-27 15:01 | NUR ---
SON ESTEBAN CALLED AND LEFT CONTACT # [phone]
--- NOTE | 2022-06-27 16:06 | NUR ---
room 314-2
--- NOTE | 2022-06-27 16:20 | NUR ---
PT REPORT GIVEN TO JOSE J QUISPE
--- NOTE | 2022-06-27 17:36 | NUR ---
PT TRANSFERRED TO [facility] VIA [facility] ACLS PROTOCOL. WARM HANDOFF GIVEN TO JOSE J QUISPE.
[2022-06-27] MEDS: IV NS 0.9% 1,000 ML IV SCH (18:20)
[2022-06-27] MEDS: DOCUSATE SODIUM 100 MG CAPSULE PO SCH (18:21)
[2022-06-27] MEDS: ENOXAPARIN SODIUM 40 MG/0.4 ML DISP.SYRIN SQ SCH (18:21)
[2022-06-27 18:55] VITALS: BP 137/64
[2022-06-27 18:56] VITALS: BP 124/64
[2022-06-27 18:57] VITALS: BP 79/36
--- NOTE | 2022-06-27 19:00 | NUR ---
RN NOTE Orthostatics taken as follows: lying down 137/64, sitting down 124/64, standing 79/36.
--- NOTE | 2022-06-27 19:30 | NUR ---
RN NOTES RECEIVED PT IN BED, AWAKE. AOx2. ON NC 3 LPM AND TOLERATING WELL. NO SOB NOTED. NO S/SX OF RESPIRATORY DISTRESS NOTED. IV ACCESS LAC #20G RUNNING NS @ 75 ML/HR. SAFETY PRECAUTIONS IN PLACE: BED IN LOWEST, LOCKED POSITION, SIDERAILS UPx2, AND BRAKES ON. TABLE AND CALL LIGHT WITHIN REACH. WILL CONTINUE TO MONITOR.
[2022-06-27 19:40] LABS: THYROID STIMULATING HORMONE 1.232 uIU/mL (0.358-3.74)
--- NOTE | 2022-06-27 19:53 | NUR ---
END OF SHIFT REPORT Received patient via gurney from ER. Report given by JOSE J Peck. Patient is A/O x 2, able to make needs known. On O2 at 3LPM via NC, breathing evenly and unlabored. No SOB or s/s of distress noted. IV access on LAC #20, hooked NS to run at 75 ml/hr. VS taken and recorded as follows: BP 126/71, HR 75, RR 18, Temp 97.6, SPO2 98%. Patient oriented to room and how to use the call light. All belongings accounted for, belonging sheet signed. Patient denies any dizziness at this time. Skin assessment done, multiple redness and a bruise on left arm noted. Surgical incisions noted on right hip and back. Photos taken and placed in chart. Medication (Hydrocodone-Acetaminophen 5-325) retrieved from patient and delivered to pharmacy for keeping. Orthostatics taken and recorded. Lungs clear. Bowel sounds present x 4. Urine sample collected and sent to lab. Safety precautions maintained: bed in low, locked position; siderails up x 2; call light within reach. Will endorse to shift supervisor nurse for MOLLY.
[2022-06-27 20:00] VITALS: BP 128/64
--- NOTE | 2022-06-27 20:05 | NUR ---
RN NOTES RECEIVED CRITICAL LAB VALUE FOR TROPONIN OF 103.5. CAROL ANGLIN MADE AWARE. NO NEW ORDERS.
[2022-06-27 20:15] LABS: BILIRUBIN,URINE NEGATIVE (NEGATIVE); COLOR,URINE YELLOW (YELLOW); LEUKOCYTE ESTERASE ,URINE NEGATIVE (NEGATIVE); NITRITE, URINE NEGATIVE (NEGATIVE); PROTEIN,URINE 30 mg/dl (NEGATIVE); UGLUCOSE NEGATIVE (NEGATIVE); UROBILINOGEN,URINE 0.2 EU/dL (0.2)
--- NOTE | 2022-06-27 20:23 | NUR ---
RN NOTES ADMINISTERED MORPHINE FOR PAIN PER MD ORDER. VS WNL.
[2022-06-27 20:30] LABS: BACTERIA,URINE 4+ /HPF (None Seen); WBC,URINE 0-2 /HPF (0-3)
--- NOTE | 2022-06-27 21:43 | NUR ---
RN NOTES PT COMPLAINED OF CHEST PAIN. CAROL ANGLIN MADE AWARE. ORDERED NITROGLYCERIN 0.4MG AND ASPIRIN 162 MG.
[2022-06-27] MEDS ORDERED: NITROGLYCERIN 0.4 MG/TAB BOTTLE SL PRN (22:00)
[2022-06-27] MEDS ORDERED: ASPIRIN 81 MG TAB.CHEW PO ONE (22:00)
[2022-06-28] VITALS (8 sets, daily range): BP systolic 101–138; BP diastolic 53–70
[2022-06-28] MEDS: ACETAMINOPHEN 325 MG TABLET PO PRN ×2 (00:01→12:23)
[2022-06-28] MEDS: IV NS 0.9% 1,000 ML IV SCH ×2 (03:50→17:55)
--- NOTE | 2022-06-28 03:54 | NUR ---
RN NOTES IV INFILTRATED. ATTEMPTED INSERTION BUT UNABLE TO INSERT. PT REFUSED MORE INSERTION ATTEMPTS. CHARGE NURSE, CAN ORTEGA.
--- NOTE | 2022-06-28 06:50 | NUR ---
RN CLOSING NOTES PT IN BED, ASLEEP, AWAKENS TO VERBAL STIMULI. AOx4. ON NC 3 LPM AND TOLERATING WELL. NO SOB NOTED. NO S/SX OF RESPIRATORY DISTRESS NOTED. IV ACCESS LAC #20G RUNNING NS @ 75 ML/HR. ALL ORDERS CARRIED OUT. ALL NEEDS MET. PT KEPT CLEAN AND DRY. SAFETY PRECAUTIONS IN PLACE: BED IN LOWEST, LOCKED POSITION, SIDERAILS UPx2, AND BRAKES ON. TABLE AND CALL LIGHT WITHIN REACH. WILL ENDORSE TO ONCOMING SHIFT FOR MOLLY.
--- NOTE | 2022-06-28 07:30 | NUR ---
RN OPENING NOTES RECEIVED PT IN BED, ASLEEP THOUGH EASILY ROUSED, AOx4. ON NC 3 LPM/ TOLERATING WELL. NO SOB NOTED. NO S/S OF SOB OR ACUTE DISTRESS NOTED. IV ACCESS LAC #20G RUNNING NS @ 75 ML/HR. TELE MONITOR READING SR 64. SAFETY PRECAUTIONS IN PLACE: BED IN LOWEST, LOCKED POSITION, SIDERAILS UPx2. TABLE AND CALL LIGHT WITHIN REACH, WILL CONT TO MONITOR.
[2022-06-28 07:37] LABS: BASOPHILS % (AUTO) 0.8 % (0.0-2.0); EOSINOPHILS % (AUTO) 4.2 % (0.0-6.0); HEMATOCRIT 33 % (33-45); HEMOGLOBIN 10.9 g/dL (11.5-14.8); LYMPHOCYTES # (AUTO) 1.5 K/uL (0.8-4.8); LYMPHOCYTES % (AUTO) 28.8 % (20.0-44.0); MEAN CORPUSCULAR HGB CONC 33 g/dl (31.0-36.0); MEAN CORPUSCULAR VOLUME 97 fL (82-100); MONOCYTES # (AUTO) 0.5 K/uL (0.1-1.30); MONOCYTES % (AUTO) 9.4 % (2.0-12.0); NEUTROPHILS % (AUTO) 56.8 % (43.0-81.0); PLATELET COUNT (AUTO) 167 K/uL (150-450); RED BLOOD CELL COUNT(AUTO) 3.39 MIL/uL (4.0-5.2); WHITE BLOOD COUNT (AUTO) 5.3 K/uL (4.3-11.0)
[2022-06-28 08:03] LABS: ALBUMIN 3.2 g/dL (3.4-5.0); BILIRUBIN,TOTAL 0.4 mg/dL (0.2-1.0); CALCIUM, SERUM 8.4 mg/dL (8.5-10.1); CREATININE 0.8 mg/dL (0.6-1.3); MAGNESIUM 2.2 mg/dL (1.8-2.4); PHOSPHORUS 4.1 mg/dL (2.5-4.9); POTASSIUM 3.6 mmol/L (3.5-5.1); TOTAL PROTEIN, SERUM 6.1 g/dL (6.4-8.2)
[2022-06-28] MEDS: LEVOTHYROXINE SODIUM 50 MCG TABLET PO SCH (09:16)
[2022-06-28] MEDS: HYDROCODONE/APAP 5/325MG TABLET PO PRN ×3 (09:16→22:09)
[2022-06-28] MEDS: DOCUSATE SODIUM 100 MG CAPSULE PO SCH ×2 (09:16→16:36)
[2022-06-28] MEDS: FLUOXETINE HCL 20 MG CAPSULE PO SCH (09:16)
[2022-06-28] MEDS: FAMOTIDINE (20 MG) 20 MG TABLET PO SCH (09:16)
[2022-06-28] MEDS: ENOXAPARIN SODIUM 40 MG/0.4 ML DISP.SYRIN SQ SCH (09:18)
--- NOTE | 2022-06-28 09:22 | NUR ---
WOUND CARE CONSULT: PT PRESENTS WITH SACRAL STAGE 3 PRESSURE ULCER, PRESENT ON ADMISSION. PT IS INCONTINENT. RECOMMENDATIONS MADE FOR SKIN PROTECTION. DISCUSSED WITH NURSING STAFF. DR MAO NOTIFIED OF SURGICAL CONSULT REQUEST. PT IS ON BILLY ISOFLEX LOW AIRLOSS BED. IN AGREEMENT WITH PLAN OF CARE. Addendum: 06/28/22 at 0923 by PRASHANT ELLISON WNDNU Amended: Links added.
--- NOTE | 2022-06-28 09:29 | NUR ---
SS consult requested for Sacral pressure sore upon admission and pt. comes from home. SW will follow up at a later time.
[2022-06-28] MEDS: FLUTICASONE/VILANTEROL 1 EACH BLST.W.DEV IH SCH (10:05)
--- NOTE | 2022-06-28 14:30 | NUR ---
SS consult requested for sacral pressure sore from home. Pt. is a 77-year-old female who was admitted to [facility] on 06/27/2022 due to altered mental status and syncope. Upon SS consult, it was difficult for the pt. to answer questions. Pt. stated that her son Rocky ([phone]) was at the hospital. Pt. stated that she wanted the communications planner to ask Rocky ([phone]) questions. meeting planner explored the pt.s caregiving services with Rocky ([phone]). Rocky ([phone]) stated that the pt. receives 24-hour caregiving at home. Rocky ([phone]) stated that the pt. lives at [address] [place] [address] with her Leonel ([phone]). Rocky ([phone]) stated that the pt. has two caregivers during the day and one 24-hour caregiver that is there in the evening. Rocky ([phone]) did not provide the communications planner with any caregiver information. meeting planner made an APS report intake ID [id number].
--- NOTE | 2022-06-28 19:39 | NUR ---
RN OPENING NOTES RECEIVED PT IN BED AAOx4,ON NC 3 LPM/ TOLERATING WELL. NO SIGN SOB/DISTRESS NOTED.NO COMPLAINE OF PAIN/DISCOMFORT AT THIS TIME, IV ACCESS LAC #20G RUNNING NS @ 75 ML/HR. TELE MONITOR READING SR 66. SAFETY PRECAUTIONS IN PLACE: BED IN LOWEST, LOCKED POSITION, SIDERAILS UPx2. TABLE AND CALL LIGHT WITHIN REACH, WILL CONTINUE TO MONITOR.
--- NOTE | 2022-06-28 20:06 | NUR ---
MARKETING OPERATIONS ASSISTANT CLOSING NOTES PT IN BED AWAKE, AOx3. ON NC 3 LPM/ TOLERATING WELL. NO SOB NOTED. NO S/S OF SOB OR ACUTE DISTRESS NOTED. DENIES PAIN AT THIS TIME. IV ACCESS LAC #20G RUNNING NS @ 75 ML/HR. TELE MONITOR READING SR 68. SAFETY PRECAUTIONS IN PLACE: BED IN LOWEST, LOCKED POSITION, SIDERAILS UPx2. TABLE AND CALL LIGHT WITHIN REACH, ENDORSED TO PM SHIFT.
[2022-06-29 00:18] VITALS: BP 113/60
[2022-06-29 05:22] VITALS: BP 118/49
[2022-06-29] MEDS: IV NS 0.9% 1,000 ML IV SCH (05:47)
--- NOTE | 2022-06-29 06:22 | NUR ---
LICENSED NUCLEAR CONTROL ROOM OPERATOR CLOSING NOTES; PT IN BED SLEEPING BUT EASY TO AROUSED.AOx3.RIVER WELL ON NC 3 LPM/ TOLERATING WELL.NO SIGN SOB/DISTRESS NOTED.PT COMPLAINED OF GENERALIZE BODY PAIN 05/19 PRN NORCO 5-325MG WAS GIVEN NO SIGN A/R NOTED.DUE MEDS GIVEN ORDERED.ALL NEEDS ATTENDED.IV ACCESS LAC #20G RUNNING NS @ 75 ML/HR. TELE MONITOR READING SR 66BPM.. SAFETY PRECAUTIONS IN PLACE: BED IN LOWEST, LOCKED POSITION, SIDERAILS UPx2. TABLE AND CALL LIGHT WITHIN REACH, ENDORSED TO NEXT SHIFT.
--- NOTE | 2022-06-29 07:16 | NUR ---
RN OPENING NOTES RECEIVED PT IN BED, ASLEEP THOUGH EASILY ROUSED, AOx4. ON NC 3 LPM/ TOLERATING WELL. NO SOB NOTED. NO S/S OF SOB OR ACUTE DISTRESS NOTED. IV ACCESS LAC #20G RUNNING NS @ 75 ML/HR. TELE MONITOR READING SR 72. SAFETY PRECAUTIONS IN PLACE: BED IN LOWEST, LOCKED POSITION, SIDERAILS UPx2. TABLE AND CALL LIGHT WITHIN REACH, WILL CONT TO MONITOR.
[2022-06-29] MEDS: ENOXAPARIN SODIUM 40 MG/0.4 ML DISP.SYRIN SQ SCH (08:27)
[2022-06-29] MEDS: FLUOXETINE HCL 20 MG CAPSULE PO SCH (08:28)
[2022-06-29] MEDS: FAMOTIDINE (20 MG) 20 MG TABLET PO SCH (08:28)
[2022-06-29] MEDS: DOCUSATE SODIUM 100 MG CAPSULE PO SCH ×2 (08:28→17:00)
[2022-06-29] MEDS: LEVOTHYROXINE SODIUM 50 MCG TABLET PO SCH (08:28)
[2022-06-29] MEDS: ACETAMINOPHEN 325 MG TABLET PO PRN (08:37)
[2022-06-29] MEDS: FLUTICASONE/VILANTEROL 1 EACH BLST.W.DEV IH SCH (08:41)
[2022-06-29] MEDS ORDERED: CEFTRIAXONE 1 G in IV D5W 50 ML IV SCH (09:00)
[2022-06-29 09:45] VITALS: BP 135/56
[2022-06-29] MEDS: HYDROCODONE/APAP 5/325MG TABLET PO PRN ×2 (10:01→15:35)
[2022-06-29] MEDS ORDERED: NITR100C6 PO (10:01)
[2022-06-29 11:29] VITALS: BP 126/62
[2022-06-29 16:22] VITALS: BP 145/55
--- NOTE | 2022-06-29 16:25 | NUR ---
JOB SITE SUPERVISORGAS DESULFURIZER NOTES: DC ORDERS CARRIED OUT. PT IS STABLE WITH VS WNL BP-135/56, HR- 69, RR- 18, O2 SAT 98% ON RA. DENIES PAIN AT THIS TIME. INSTRUCTIONS GIVEN TO PT AT BEDSIDE, PT VERBALIZED UNDERSTANDING AND SIGNED. HOME MEDICATION RETURNED, BELONGINGS CHECKLIST SIGNED. IV ACCESS, ID BAND AND TELE BOX REMOVED. ENDORSED TO [employer] # [id number], COMPANY IS [employer]. TRANSPORTED TO HOME VIA AMBULANCE,. SON ESTEBAN IS AWARE, PER SON , CAREGIVER AND PT'S SPOUSE WILL BE AT PT'S HOME UPON ARRIVAL.
== END 2022-06-29 16:30 | disposition home or self-care (01) | DRG 690 ==
LOC: ER 11:56 → TELE 16:47
PROVIDERS: ADMIT Internal Medicine; ATTEND Internal Medicine
DX: N39.0 Urinary tract infection, site not specified (principal); E44.0 Moderate protein-calorie malnutrition; I95.1 Orthostatic hypotension; R62.7 Adult failure to thrive; Z20.822 Contact with and (suspected) exposure to COVID-19; E78.5 Hyperlipidemia, unspecified; F02.80 Dementia in other diseases classified elsewhere, unspecified severity, without behavioral disturbance, psychotic disturbance, mood disturbance, and anxiety; G30.9 Alzheimer's disease, unspecified; G43.909 Migraine, unspecified, not intractable, without status migrainosus; R13.10 Dysphagia, unspecified; R26.9 Unspecified abnormalities of gait and mobility; M54.50 Low back pain, unspecified; E03.9 Hypothyroidism, unspecified; Z91.048 Other nonmedicinal substance allergy status; Z79.01 Long term (current) use of anticoagulants; Z79.899 Other long term (current) drug therapy; Z74.09 Other reduced mobility; S09.90XA Unspecified injury of head, initial encounter; W18.30XA Fall on same level, unspecified, initial encounter; Y92.009 Unspecified place in unspecified non-institutional (private) residence as the place of occurrence of the external cause; Z79.51 Long term (current) use of inhaled steroids; E88.09 Other disorders of plasma-protein metabolism, not elsewhere classified
CPT/HCPCS: 36415; 70450-TC; 71045-TC; 80048-TC; 80053-TC; 80076-TC; 81001; 83605-TC; 83735-TC; 84100-TC; 84439-TC; 84443-TC; 84481; 84484-TC; 85025-TC; 85730-TC; 87081-TC; 87086-TC; 87186-TC; 93307-TC; 94799-TC; 97116-TC; 97530-TC; C9803; G0378; J0696; J1650; J2270; J7030; J7060